=== PATIENT | female | born 1960 | race Caucasian/White ===

== ENCOUNTER → 2018-04-15 | Outpatient (CLI) | payer BC, OTHER ==
[~2018-04-15] MED LIST: Inderal80 MG PO; OMEP40CA12 PO
[2018-04-15 15:16] LABS: BASOPHILS ABSOLUTE AUTO 0.06 K/mm3 (0.00-0.23); BASOPHILS PERCENT AUTO 1 % (0-2); EOSINOPHILS ABSOLUTE AUTO 0.04 K/mm3 (0.00-0.68); EOSINOPHILS PERCENT AUTO 0 % (0-6); Hemoglobin 14.5 g/dL (11.5-16.0); IMMATURE GRAN ABSOLUTE AUTO 0.05 K/mm3 (0.00-0.10); IMMATURE GRAN PERCENT AUTO 0 % (0-1); LYMPHOCYTES ABSOLUTE AUTO 2.13 K/mm3 (0.84-5.20); LYMPHOCYTES PERCENT AUTO 18 % (21-46); MONOCYTES ABSOLUTE AUTO 0.85 K/mm3 (0.16-1.47); MONOCYTES PERCENT AUTO 7 % (4-13); Mean Corpuscular HGB 29.3 pg (26.0-34.0); Mean Corpuscular HGB Conc 33.7 g/dL (31.5-36.5); Mean Corpuscular Volume 87 fL (80-100); Mean Platelet Volume 9.9 fL (9.1-12.4); NEUTROPHILS ABSOLUTE AUTO 9.01 K/mm3 (1.96-9.15); NEUTROPHILS PERCENT AUTO 74 % (41-73); Platelet Count 214 K/mm3 (150-400); RDW Coefficient Variation 13.8 % (11.7-14.2); RDW Standard Deviation 43.8 fL (35.1-46.3); Red Blood Cell Count 4.95 M/mm3 (3.80-5.20); White Blood Cell Count 12.14 K/mm3 (4.00-11.30)
[2018-04-15 15:25] LABS: Alanine Aminotransfer (ALT/SGP 17 U/L (12-78); Albumin, Blood 3.5 g/dL (3.4-5.0); Albumin/Globulin Ratio 0.8 (0.8-1.8); Alk Phos 111 U/L (40-126); Anion Gap 12 mmol/L (6-16); Aspartate Aminotrans (AST/SGOT 15 U/L (12-37); Bilirubin, Total 0.7 mg/dL (0.1-1.0); Blood Urea Nitrogen 11 mg/dL (8-24); Bun/Creatinine Ratio 12.6 (12.0-20.0); CO2, Blood 26 mmol/L (21-32); Calcium, Blood 9.2 mg/dL (8.5-10.1); Chloride, Blood 99 mmol/L (98-108); Creatinine, Blood 0.87 mg/dL (0.40-1.00); Globulin, Blood 4.3 g/dL (2.2-4.0); Glomerular Filtration Rate >60 (60-); Glucose, Blood 96 mg/dL (70-99); Potassium, Blood 3.5 mmol/L (3.5-5.5); Sodium, Blood 137 mmol/L (136-145); Total Protein, Blood 7.8 g/dL (6.4-8.2)
== END ==
LOC: LAB SHORT 15:10 → LAB EV 15:10
PROVIDERS: Physician Assistant
DX: R10.32 Left lower quadrant pain (principal)
CPT/HCPCS: 80053; 83690; 85025

== ENCOUNTER → 2019-12-28 | Outpatient (CLI) | payer BC, OTHER | END | disposition home or self-care (01) | LOC: LAB EV 09:35 → LAB SHORT 09:35 | DX: J06.9 Acute upper respiratory infection, unspecified (principal) | CPT/HCPCS: U0003 ==

== ENCOUNTER → 2021-04-27 | Outpatient (CLI) | payer BC, OTHER | END | disposition home or self-care (01) | LOC: LAB SHORT 10:45 → LAB 10:45 → LAB SHORT 04-28 10:45 | DX: Z20.822 Contact with and (suspected) exposure to COVID-19 (principal) | CPT/HCPCS: U0003 ==

== ENCOUNTER 2022-07-03 10:46 | Inpatient (IN) | payer BC, OTHER ==
[~2022-07-03] VITALS: Ht 175.3 cm; Wt 75.3 kg
[2022-07-03 11:16] LABS: BASOPHILS ABSOLUTE AUTO 0.04 K/mm3 (0.00-0.23); BASOPHILS PERCENT AUTO 0 % (0-2); EOSINOPHILS PERCENT AUTO 0 % (0-6); Hematocrit 42.5 % (33.0-51.0); Hemoglobin 14.7 g/dL (11.5-16.0); IMMATURE GRAN ABSOLUTE AUTO 0.04 K/mm3 (0.00-0.10); IMMATURE GRAN PERCENT AUTO 0 % (0-1); LYMPHOCYTES ABSOLUTE AUTO 0.86 K/mm3 (0.84-5.20); LYMPHOCYTES PERCENT AUTO 7 % (21-46); MONOCYTES PERCENT AUTO 7 % (4-13); Mean Corpuscular HGB 29.5 pg (26.0-34.0); Mean Corpuscular HGB Conc 34.6 g/dL (31.5-36.5); Mean Corpuscular Volume 85 fL (80-100); Mean Platelet Volume 10.1 fL (9.1-12.4); NEUTROPHILS PERCENT AUTO 85 % (41-73); Platelet Count 282 K/mm3 (150-400); RDW Coefficient Variation 13.1 % (11.7-14.2); Red Blood Cell Count 4.98 M/mm3 (3.80-5.20); White Blood Cell Count 11.84 K/mm3 (4.00-11.30)
[2022-07-03 11:40] LABS: Albumin, Blood 2.7 g/dL (3.4-5.0); Albumin/Globulin Ratio 0.6 (0.8-1.8); Bilirubin, Total 0.8 mg/dL (0.1-1.0); Bun/Creatinine Ratio 13.8 (12.0-20.0); Calcium, Blood 8.8 mg/dL (8.5-10.1); Creatinine, Blood 0.65 mg/dL (0.40-1.00); Globulin, Blood 4.9 g/dL (2.2-4.0); Potassium, Blood 4.5 mmol/L (3.5-5.5); Total Protein, Blood 7.6 g/dL (6.4-8.2)
[2022-07-04 04:49] LABS: BASOPHILS ABSOLUTE AUTO 0.03 K/mm3 (0.00-0.23); BASOPHILS PERCENT AUTO 0 % (0-2); EOSINOPHILS ABSOLUTE AUTO 0.01 K/mm3 (0.00-0.68); EOSINOPHILS PERCENT AUTO 0 % (0-6); Hemoglobin 12.8 g/dL (11.5-16.0); IMMATURE GRAN ABSOLUTE AUTO 0.03 K/mm3 (0.00-0.10); IMMATURE GRAN PERCENT AUTO 0 % (0-1); LYMPHOCYTES ABSOLUTE AUTO 0.78 K/mm3 (0.84-5.20); LYMPHOCYTES PERCENT AUTO 8 % (21-46); MONOCYTES ABSOLUTE AUTO 0.77 K/mm3 (0.16-1.47); MONOCYTES PERCENT AUTO 8 % (4-13); Mean Corpuscular HGB 28.8 pg (26.0-34.0); Mean Corpuscular HGB Conc 32.8 g/dL (31.5-36.5); Mean Corpuscular Volume 88 fL (80-100); Mean Platelet Volume 10.2 fL (9.1-12.4); NEUTROPHILS PERCENT AUTO 84 % (41-73); Platelet Count 210 K/mm3 (150-400); RDW Coefficient Variation 13.2 % (11.7-14.2); RDW Standard Deviation 42.5 fL (35.1-46.3); Red Blood Cell Count 4.45 M/mm3 (3.80-5.20); White Blood Cell Count 10.02 K/mm3 (4.00-11.30)
[2022-07-04 05:04] LABS: International Normalized Ratio 1.19; Prothrombin Time Results 12.4 Sec (9.7-11.5)
--- NOTE | 2022-07-04 05:10 | NUR ---
SHIFT SUMMARY PT ER ADMIT THIS SHIFT FOR DIVERTICULITIS WITH ABCESS. PT HAS A PMH OF DIVERITICULITIS. PT STATES THAT SHE HAS BEEN EXPERIENCING PAIN FOR THE LAST COUPLE OF WEEKS AND HAS HAD A LOSS OF APPETITE AND WEIGHT LOSS. SHE REPORTS THAT SHE HAS NOT HAD A BOWEL MOVEMENT IN TWO WEEKS. ABD IS SOFT, BOWEL TONES HYPOACTIVE. PT REPORTS PAIN IN HER PELVIC REGION. MEDICATED PER EMAR FOR PAIN WITH EFFECT. PT AGREEABLE TO TAKE FENTANYL FOR PAIN. TYLENOL FOR FEVERS. IVF INFUSING. IV ANTIBIOTICS INFUSED. PT HAS BEEN UP AND AMBULATING TO THE BATHROOM. SHE IS NPO AT THIS TIME. PLAN IS FOR SURGICAL CONSULT.
[2022-07-04 05:53] LABS: Albumin, Blood 2.2 g/dL (3.4-5.0); Albumin/Globulin Ratio 0.6 (0.8-1.8); Bilirubin, Total 0.6 mg/dL (0.1-1.0); Bun/Creatinine Ratio 11.5 (12.0-20.0); Calcium, Blood 8.4 mg/dL (8.5-10.1); Creatinine, Blood 0.7 mg/dL (0.40-1.00); Globulin, Blood 3.6 g/dL (2.2-4.0); Potassium, Blood 3.7 mmol/L (3.5-5.5); Total Protein, Blood 5.8 g/dL (6.4-8.2)
--- NOTE | 2022-07-04 09:31 | NUR ---
TO RADIOLOGY VIA CART
--- NOTE | 2022-07-04 11:33 | NUR ---
Pt. is a wake in bed and welcomes my visit. Pts. daughter is present. Pt. is unsettled by previous diagnosis and treatments, and displays evidence of stress and frustration with the ED admission process. Pt. verbalizes she has had excellent care once she was seen by medical staff. Listen empathetically with a calming presence. Attempt to normalize the Pt. experience. Pt. displays evidence of being heard. Establish rapport with Pt. and daughter. Pt. verbalizes that she is no longer active in the judaism evangelical, and welcomes spiritual care from the hospital. Pt. 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 Pt. verbalizes that rest is hard to come by at home. Prayed with the Pt. and daughter. Both verbalize gratitude for the spiritual care visit.
--- NOTE | 2022-07-04 11:47 | NUR ---
1045 RETURNED TO ROOM FROM RADIOLOGY. UROSIL DRAIN IN PLACE TO LEFT BUTTOCK AREA. CLOUDY YELLOW DRAINAGE PRESENT IN DRAIINAGE BAG.
--- NOTE | 2022-07-04 18:25 | NUR ---
PT DID WELL TODAY. DRAIN PLACED IN LEFT UPPER BUTTOCK ATTACHED TO UROSIL BAG. QUARTER SIZED BLEEDING AROUND DRAIN. YELLOW SEROSANGUINOUS FLUID. DRESSING INTACT. PATIENT STATES PAIN IS TOLERATED AT 5/10. CURRENTLY AT 4/10 FOR HEADACHE AND 7/10 FOR ABDOMEN AND LEFT BUTTOCK AREA. PT STATES OKAY FOR NOW. PT HAS BEEN TOLERATING PO FLUIDS WELL.
--- NOTE | 2022-07-04 18:59 | NUR ---
PT REPORTS PAIN IS ADEQUATELY CONTROLLED AND DENIES NEED FOR PIN MEDS AT THIS TIME. PT REPORTS HEADACHE HAS DECREASED AFTER TORADOL GIVEN. TAKING SMALL AMOUNTS OF CLEAR LIQUID WITHOUT NAUSEA. DRAIN IN PLACE TO LEFT BUTTOCK AREA WITH CLOUDY YELLOW OUTPUT. Q
[2022-07-05 04:30] LABS: Hematocrit 37.6 % (33.0-51.0); Hemoglobin 12.2 g/dL (11.5-16.0); Mean Corpuscular HGB 28.4 pg (26.0-34.0); Mean Corpuscular HGB Conc 32.4 g/dL (31.5-36.5); Mean Corpuscular Volume 88 fL (80-100); Mean Platelet Volume 10.1 fL (9.1-12.4); Platelet Count 235 K/mm3 (150-400); RDW Coefficient Variation 13.2 % (11.7-14.2); RDW Standard Deviation 42.6 fL (35.1-46.3); Red Blood Cell Count 4.29 M/mm3 (3.80-5.20); White Blood Cell Count 8.93 K/mm3 (4.00-11.30)
[2022-07-05 05:39] LABS: Alanine Aminotransfer (ALT/SGP 9 U/L (12-78); Albumin/Globulin Ratio 0.5 (0.8-1.8); Alk Phos 77 U/L (50-136); Anion Gap 8 mmol/L (6-16); Aspartate Aminotrans (AST/SGOT 10 U/L (12-37); Bilirubin, Total 0.5 mg/dL (0.1-1.0); Blood Urea Nitrogen 12 mg/dL (8-24); Bun/Creatinine Ratio 23.3 (12.0-20.0); C-REACTIVE PROTEIN, EXT RANGE >19.000 mg/dL (0.000-0.300); CO2, Blood 23 mmol/L (21-32); Calcium, Blood 8.5 mg/dL (8.5-10.1); Chloride, Blood 110 mmol/L (98-108); Creatinine, Blood 0.52 mg/dL (0.40-1.00); Globulin, Blood 3.7 g/dL (2.2-4.0); Glomerular Filtration Rate 105 (60-); Glucose, Blood 108 mg/dL (70-99); Potassium, Blood 3.5 mmol/L (3.5-5.5); Sodium, Blood 141 mmol/L (136-145); Total Protein, Blood 5.7 g/dL (6.4-8.2)
--- NOTE | 2022-07-05 07:45 | NUR ---
SUMMARY PT MED X1 FOR NAUSEA LAST SHIFT.REPORTS DILAUDID EFFETIVE FOR PAIN.VERB INABILITY TO SLEEP. REQUESTS SLEEPER VIVEK CHAN RN AGREES TO FOLLOW UP REGARDING THIS.
--- NOTE | 2022-07-05 17:01 | NUR ---
SCANT SEROUS DRAINAGE FROM UROSIL DRAIN. PT REPORTS OVERALL ABD PAIN HAS DECREASED FROM WHAT IT WAS YESTERDAY BUT THAT DRAIN INSERTION SITE IS PAINFUL.POOR APPETITE BUT HAS DENIED NEED FOR NAUSEA MEDS. PT REPORTS HAS SLEPT VERY LITTLE SINCE ADMITTED- ORDERS OBTAINED FOR SLEEP MED.
--- NOTE | 2022-07-06 04:13 | NUR ---
SHIFT SUMMARY S/P URASIL DRAIN PLACEMENT. SCANT SEROSANGUINEOUS FLUID IN TUBING.DRAIN SECURE WITH ADHESIVE SURGICAL DRESSING, C/D/I. PATIENT TOLERATING PO CLD. DENIES N/V. PAIN WELL MANAGED THIS SHIFT. VOIDS X2 URINE IS DARK TEA COLORED. SBA TO THE BATHROOM, VSS. CALLS APROPRIATELY. WILL REPORT TO DAY RN.
[2022-07-06 04:54] LABS: Hematocrit 36.4 % (33.0-51.0); Mean Corpuscular HGB 28.8 pg (26.0-34.0); Mean Corpuscular Volume 87 fL (80-100); Mean Platelet Volume 10.2 fL (9.1-12.4); Platelet Count 219 K/mm3 (150-400); RDW Coefficient Variation 13.4 % (11.7-14.2); RDW Standard Deviation 43.4 fL (35.1-46.3); Red Blood Cell Count 4.17 M/mm3 (3.80-5.20); White Blood Cell Count 7.38 K/mm3 (4.00-11.30)
[2022-07-06 05:25] LABS: Albumin, Blood 1.9 g/dL (3.4-5.0); Albumin/Globulin Ratio 0.5 (0.8-1.8); Bilirubin, Total 0.5 mg/dL (0.1-1.0); Calcium, Blood 8.4 mg/dL (8.5-10.1); Creatinine, Blood 0.54 mg/dL (0.40-1.00); Globulin, Blood 3.6 g/dL (2.2-4.0); Potassium, Blood 3.5 mmol/L (3.5-5.5); Total Protein, Blood 5.5 g/dL (6.4-8.2)
[2022-07-07 04:38] LABS: Hematocrit 35.6 % (33.0-51.0); Hemoglobin 11.3 g/dL (11.5-16.0); Mean Corpuscular HGB 28.3 pg (26.0-34.0); Mean Corpuscular HGB Conc 31.7 g/dL (31.5-36.5); Mean Corpuscular Volume 89 fL (80-100); Mean Platelet Volume 9.9 fL (9.1-12.4); Platelet Count 258 K/mm3 (150-400); RDW Coefficient Variation 13.6 % (11.7-14.2); RDW Standard Deviation 44.8 fL (35.1-46.3); Red Blood Cell Count 3.99 M/mm3 (3.80-5.20); White Blood Cell Count 7.03 K/mm3 (4.00-11.30)
[2022-07-07 05:00] LABS: Albumin, Blood 1.9 g/dL (3.4-5.0); Albumin/Globulin Ratio 0.5 (0.8-1.8); Bilirubin, Total 0.4 mg/dL (0.1-1.0); Bun/Creatinine Ratio 21.8 (12.0-20.0); Calcium, Blood 8.3 mg/dL (8.5-10.1); Creatinine, Blood 0.6 mg/dL (0.40-1.00); Globulin, Blood 3.5 g/dL (2.2-4.0); Potassium, Blood 3.6 mmol/L (3.5-5.5); Total Protein, Blood 5.4 g/dL (6.4-8.2)
--- NOTE | 2022-07-07 19:15 | NUR ---
SHIFT SUMMARY POD2 L BUTTOCK DRAIN PLACEMENT, A/O X4, VSS, TOLERATING DIET, PAIN MANAGED PER EMAR, IV ABX INFUSING ORDERED, PT INDEPENDENT IN HER ROOM, PLEASANT AND COOPERATIVE WITH NURSING STAFF. SMALL AMT OF YELLOW CLOUDY DRAINAGE EMPTIED FROM DRAIN THIS SHIFT. NO ACUTE EVENTS THIS SHIFT, CALL LIGHT IN REACH, REPORT GIVEN TO JUSTYN PATIÑO.
[2022-07-08 04:26] LABS: Hematocrit 35.1 % (33.0-51.0); Hemoglobin 11.1 g/dL (11.5-16.0); Mean Corpuscular HGB 28.2 pg (26.0-34.0); Mean Corpuscular HGB Conc 31.6 g/dL (31.5-36.5); Mean Corpuscular Volume 89 fL (80-100); Platelet Count 267 K/mm3 (150-400); RDW Coefficient Variation 13.6 % (11.7-14.2); RDW Standard Deviation 44.6 fL (35.1-46.3); Red Blood Cell Count 3.94 M/mm3 (3.80-5.20); White Blood Cell Count 6.43 K/mm3 (4.00-11.30)
[2022-07-08 04:44] LABS: Albumin, Blood 1.8 g/dL (3.4-5.0); Albumin/Globulin Ratio 0.5 (0.8-1.8); Bilirubin, Total 0.3 mg/dL (0.1-1.0); Creatinine, Blood 0.57 mg/dL (0.40-1.00); Globulin, Blood 3.5 g/dL (2.2-4.0); Potassium, Blood 3.3 mmol/L (3.5-5.5); Total Protein, Blood 5.3 g/dL (6.4-8.2)
--- NOTE | 2022-07-08 04:45 | NUR ---
POD3 FOR A URACEL DRAIN PLACEMENT IN THE LEFT BUTTOCK. DRESSING IS C/D/I. MINIMAL CLEAR YELLOW DRAINAGE TINGED WITH RED STREAKS NOTED. PT REPORTS PAIN RELATED TO DRAIN INSERTION POINT AND LOWER ABD PAIN. MEDICATED WITH PRN'S WITH GOOD RESULTS. VSS. PT SLEPT ON AND OFF TONIGHT. PT VOIDING W/O DIFFICULTY, REPORTS PASSING SOME FLATTUS, BUT NO BM'S. PLAN FOR PT TO CONTINUE IV ABX, ADVANCE DIET, AND STAY UNTIL THE RETURN OF BOWEL FUNCTION. THE PATIENT IS CURRENTLY RESTING, IN NO DISTRESS, CALL LIGHT IN REACH.
--- NOTE | 2022-07-08 08:47 | NUR ---
C/O NAUSEA THIS AM, ZOFRAN GIVEN, REPORTS PASSING FLATUS, PT IS TRYING TO EAT BREAKFAST, STATES SHE IS AMBULATING IN ROOM, URESIL DRAIN W/ CLOUDY ORANGE DRAINAGE NOTED IN DRAINAGE BAG, CONT. TO MONITOR FOR ANY CHANGES.
--- NOTE | 2022-07-08 12:31 | NUR ---
PT STATES HAD LITTLE RELIEF OF NAUSEA FROM ZOFRAN THIS AM, PT REPORTS TOLERATING LOW FAT DIET FAIRLY, AND HAS NOT BEEN EATING MUCH, 2 NICOTINE PATCHES REMOVED FROM PT THIS AM PRIOR TO THIS AM'S DOSE, DR. RUBIO NOTIFIED, ORDERED TO REMOVE TODAY'S NICOTINE PATCH AND PLACE PT ON FULL LIQ. DIET.
--- NOTE | 2022-07-08 15:50 | NUR ---
AWAKE FROM NAP, DENIES ANY NAUSEA, REPORTS FEELING "BETTER" CONT. TO MONITOR FOR ANY CHANGES.
--- NOTE | 2022-07-08 18:10 | NUR ---
SUMMARY C/O NAUSEA THIS AM, AMBULATED DOWN THE HALLS, DENIED ANY NEED FOR PAIN MEDS ALL DAY, PT TOOK A NAP THIS AFTERNOON AND REPORTS FEELING BETTER THIS EVENING, NO ACUTE CHANGES THIS SHIFT.
--- NOTE | 2022-07-09 06:27 | NUR ---
PT VSS T/O NIGHT. URESIL DRAIN PUT OUT APPX 10ML SS DRNG. SITE WNL. PT DENIED N/V, REP +FLATUS, NO BM YET. PT REP PAIN MINIMAL, MED X1 W/REP RELIEF. PT REP HAVING SLEPT BETTER TONIGHT. PT INDEP IN ROOM, IS VOIDING URINE W/O DIFFICULTY. IV ABX CONT PER ORDERS.
--- NOTE | 2022-07-09 07:31 | NUR ---
PT AMB IN HALLS THIS AM, MARCO WELL. IS CURRENTLY SITTING UP IN CHAIR DRINKING TEA.
--- NOTE | 2022-07-09 17:52 | NUR ---
SUMMARY DENIED ANY NAUSEA THIS AM, C/O NAUSEA THIS AFTERNOON, PT STATES NOT PASSING MUCH FLATUS TODAY, AMBULATED DOWN THE HALLS X3 TODAY, AND OOB TO CHAIR, DRAIN C/D/I, SCANT CLOUDY ORANGE DRAINAGE, NO OTHER CHANGES THIS SHIFT.
[2022-07-10 05:08] LABS: Hematocrit 34.3 % (33.0-51.0); Hemoglobin 11.4 g/dL (11.5-16.0); Mean Corpuscular HGB 29.1 pg (26.0-34.0); Mean Corpuscular HGB Conc 33.2 g/dL (31.5-36.5); Mean Corpuscular Volume 88 fL (80-100); Mean Platelet Volume 9.8 fL (9.1-12.4); Platelet Count 302 K/mm3 (150-400); RDW Coefficient Variation 13.7 % (11.7-14.2); RDW Standard Deviation 43.7 fL (35.1-46.3); Red Blood Cell Count 3.92 M/mm3 (3.80-5.20); White Blood Cell Count 8.55 K/mm3 (4.00-11.30)
[2022-07-10 05:32] LABS: Albumin, Blood 1.9 g/dL (3.4-5.0); Albumin/Globulin Ratio 0.5 (0.8-1.8); Bilirubin, Total 0.3 mg/dL (0.1-1.0); Calcium, Blood 8.4 mg/dL (8.5-10.1); Creatinine, Blood 0.54 mg/dL (0.40-1.00); Globulin, Blood 3.5 g/dL (2.2-4.0); Potassium, Blood 3.5 mmol/L (3.5-5.5); Total Protein, Blood 5.4 g/dL (6.4-8.2)
--- NOTE | 2022-07-10 07:49 | NUR ---
PT VSS T/O NIGHT. PT REP PAIN AND NAUSEA IMPROVED THIS AM, REP +FLATUS. NO SIGNIFICANT DRNG FROM URESIL DRAIN. PT AMB IN HALLS X2 DURING NIGHT AND X1 THIS AM. PLAN FOR REPEAT CT THIS AM.
--- NOTE | 2022-07-10 17:27 | NUR ---
SHIFT SUMMARY: POD 7 URACIL DRAIN PLACED FOR DIVERTIC ABSCESS NO SIGNIFICANT CHANGES DURING SHIFT. URACIL ON LEFT BUTTOCK STILL HAS MINIMAL OUTPUT THAT IS A LIGHT RED COLOR. SHE IS TOLERATING SMALL AMOUNTS OF PO INTAKE BUT REPORTS SLIGHT NAUSEA AT TIMES THOUGH REFUSES ANTNAUSEA MEDICATIONS. SHE REPORTED "I'VE BEEN INTERMITTENTLY NAUSEOUS EVER SINCE THEY GAVE ME THAT SMALL LITTLE PILL EARLY IN THE MORNING". PATIENT BELIEVES IT WAS FROM THE PO PROTONIX AND HAS REFUSED IT FOR THE EVENING TO "TRY AND RULE STUFF OUT" TO FIGURE OUT WHY SHE SO NAUSEATED. SHE REPORTS HAVING FLATUS, BURPING, AND IS VOIDING. SHE IS FREQUENTLY AMBULATING IN THE HALLWAYS AND INSIDE THE ROOM INDEP. ABD IS SOFT AND HAS HYPERACTIVE BOWEL TONES. PAIN IS MANAGED WITH PO TYLENOL. CALLS APPROPRIATELY. CALL LIGHT WITHIN REACH. THE PLAN IS TO CONTINUE IV ABX AND IF APPROPRIATE MIGHT DISCHARGE HOME WITH THE DRAIN TOMORROW DEPENDING ON OUTPUT OF DRAIN AND MORE NAUSEA IMPROVEMENT.
[2022-07-11 05:17] LABS: Hematocrit 37.1 % (33.0-51.0); Hemoglobin 11.7 g/dL (11.5-16.0); Mean Corpuscular HGB 28.3 pg (26.0-34.0); Mean Corpuscular HGB Conc 31.5 g/dL (31.5-36.5); Mean Corpuscular Volume 90 fL (80-100); Mean Platelet Volume 9.6 fL (9.1-12.4); Platelet Count 306 K/mm3 (150-400); RDW Coefficient Variation 13.7 % (11.7-14.2); RDW Standard Deviation 45.4 fL (35.1-46.3); Red Blood Cell Count 4.14 M/mm3 (3.80-5.20); White Blood Cell Count 8.19 K/mm3 (4.00-11.30)
[2022-07-11 05:43] LABS: Albumin/Globulin Ratio 0.6 (0.8-1.8); Bilirubin, Total 0.4 mg/dL (0.1-1.0); Bun/Creatinine Ratio 10.6 (12.0-20.0); Calcium, Blood 8.4 mg/dL (8.5-10.1); Creatinine, Blood 0.56 mg/dL (0.40-1.00); Globulin, Blood 3.6 g/dL (2.2-4.0); Potassium, Blood 3.6 mmol/L (3.5-5.5); Total Protein, Blood 5.6 g/dL (6.4-8.2)
--- NOTE | 2022-07-11 05:46 | NUR ---
PT AWAKE FOR MUCH OF NIGHT, VSS. PT REP NAUSEA EARLY IN SHIFT; MED W/ZOFRAN W/REP RELIEF. BT HYPO, PT REP PASSING FLATUS, NO BM YET. PT MED FOR PAIN X2, REP PAIN AT DRAIN INSERTION SITE AND "DEEP" IN ABD. PT DECLINING MOST PO MEDS. PT AGREEABLE TO START BOWEL CARE THIS AM. PT AMB IN HALLS X1, IS INDEP IN ROOM.
[2022-07-11] MEDS ORDERED: OXYC5 PO (13:52)
[2022-07-11] MEDS ORDERED: Acetaminophen650 M1 PO (13:53)
[2022-07-11] MEDS ORDERED: NICO21TP TOP (13:53)
[2022-07-11] MEDS ORDERED: CIPR500 PO (13:53)
[2022-07-11] MEDS ORDERED: MIRT30 PO (13:53)
[2022-07-11] MEDS ORDERED: ONDA4ODT MM (13:54)
[2022-07-11] MEDS ORDERED: FLAGYL500 M1 PO (13:54)
--- NOTE | 2022-07-11 15:25 | NUR ---
DISCHARGE NOTE: PATIENT AND PATIENTS DAUGHTER WERE EDUCATED ON DISCHARGE INSTRUCTIONS. BOTH VERBALIZED UNDERSTANDING OF INSTRUCTIONS AND HAD NO FURTHER QUESTIONS AT THIS TIME. IV WAS TAKEN OUT AND WNL. HER DRESSING ON HER LEFT BUTTOCKS WAS CHANGED AND IS C/D/I. PATIENT WAS EDUCATED ON HOW TO EMPTY, DOCUMENT, AND KEEP THE DRESSING CLEAN AFTER SHOWERING. HARD PERSCRIPTION WAS GIVEN TO THE DAUGHTER AND OTHER PERSCRIPTIONS WERE FAXED TO HER PREFERRED PHARMACY WHICH IS [facility] PATIENT IS INDEP. IN THE ROOM. SHE IS TOLERATING SMALL AMOUNTS OF PO INTAKE, VOIDING, AND PASSING GAS. SHE HAS PERSONAL ITEMS IN THE ROOM GATHERED. PATIENT IS BEING WHEELCHAIRED OUT TO HER DAUGHTERS CAR TO BE TAKEN HOME.
== END 2022-07-11 15:31 | disposition home or self-care (01) | DRG 391 ==
LOC: ER 10:46 → SURS 18:32 → ERHOLD 18:32 → SURS 18:32
PROVIDERS: Internal Medicine; Physician Assistant; Surgery; ADMIT Internal Medicine
PROC: 0W9G30Z Drainage of Peritoneal Cavity with Drainage Device, Percutaneous Approach (ICD-10-PCS; principal; 2022-07-04)
DX: K57.20 Diverticulitis of large intestine with perforation and abscess without bleeding (principal); K65.1 Peritoneal abscess; K56.7 Ileus, unspecified; G47.00 Insomnia, unspecified; J44.9 Chronic obstructive pulmonary disease, unspecified; I10 Essential (primary) hypertension; B96.20 Unspecified Escherichia coli [E. coli] as the cause of diseases classified elsewhere; K21.9 Gastro-esophageal reflux disease without esophagitis; F17.210 Nicotine dependence, cigarettes, uncomplicated; B96.4 Proteus (mirabilis) (morganii) as the cause of diseases classified elsewhere; G43.709 Chronic migraine without aura, not intractable, without status migrainosus; Z90.49 Acquired absence of other specified parts of digestive tract; Z90.710 Acquired absence of both cervix and uterus; Z88.0 Allergy status to penicillin
CPT/HCPCS: 36415; 49405; 74177; 80053; 83690; 83735; 85025; 85027; 85610; 85651; 86140; 87070; 87075; 87077; 87186; 87205; 96361; 96365-59; 96375; 99285-25; A9270; C1751; C9113; J0692; J1170; J1790; J1885; J2405; J2550; J3010; J7030; J7050; Q9967

== ENCOUNTER 2024-04-13 15:34 | Inpatient (IN) | payer BC, OTHER ==
[~2024-04-13] VITALS: Ht 175.3 cm; Wt 90.0 kg
[~2024-04-13 15:34] MED LIST changes: +Acetaminophen650 M1 PO; +CIPR500 PO; +FLAGYL500 M1 PO; +MIRT30 PO; +NICO21TP TOP; +NITR.4SL; +OMEP20ER; +ONDA4ODT MM; +OXYC5 PO
[2024-04-13 16:13] LABS: BASOPHILS ABSOLUTE AUTO 0.04 K/mm3 (0.00-0.23); BASOPHILS PERCENT AUTO 1 % (0-2); EOSINOPHILS ABSOLUTE AUTO 0.06 K/mm3 (0.00-0.68); EOSINOPHILS PERCENT AUTO 1 % (0-6); Hematocrit 47.6 % (33.0-51.0); Hemoglobin 15.7 g/dL (11.5-16.0); IMMATURE GRAN ABSOLUTE AUTO 0.03 K/mm3 (0.00-0.10); IMMATURE GRAN PERCENT AUTO 0 % (0-1); LYMPHOCYTES PERCENT AUTO 19 % (21-46); MONOCYTES ABSOLUTE AUTO 0.59 K/mm3 (0.16-1.47); MONOCYTES PERCENT AUTO 7 % (4-13); Mean Corpuscular HGB 29.4 pg (26.0-34.0); Mean Corpuscular Volume 89 fL (80-100); Mean Platelet Volume 9.3 fL (9.1-12.4); NEUTROPHILS ABSOLUTE AUTO 6.14 K/mm3 (1.96-9.15); NEUTROPHILS PERCENT AUTO 73 % (41-73); Platelet Count 211 K/mm3 (150-400); RDW Coefficient Variation 13.5 % (11.7-14.2); RDW Standard Deviation 44.1 fL (35.1-46.3); Red Blood Cell Count 5.34 M/mm3 (3.80-5.20); White Blood Cell Count 8.46 K/mm3 (4.00-11.30)
[2024-04-13 16:43] LABS: Albumin, Blood 3.4 g/dL (3.4-5.0); Albumin/Globulin Ratio 0.9 (0.8-1.8); Bilirubin, Total 0.8 mg/dL (0.1-1.0); Bun/Creatinine Ratio 17.9 (12.0-20.0); Calcium, Blood 8.9 mg/dL (8.5-10.1); Creatinine, Blood 0.78 mg/dL (0.40-1.00); Globulin, Blood 3.8 g/dL (2.2-4.0); Potassium, Blood 3.3 mmol/L (3.5-5.5); Total Protein, Blood 7.2 g/dL (6.4-8.2)
[2024-04-13] MEDS ORDERED: TRAZ100 PO (17:23)
[2024-04-13] MEDS ORDERED: ESCI20 PO (17:23)
[2024-04-13] MEDS ORDERED: BUPROPION XL150 M1 PO (17:24)
[2024-04-13] MEDS ORDERED: ADALAT CC30 M2 PO (17:24)
[2024-04-13] MEDS ORDERED: Morphine Sulfate 4 MG/1 ML Injection IV ONE (17:25)
[2024-04-13] MEDS ORDERED: Ondansetron HCl 2 MG / ML 2ML Vial IV ONE (17:25)
[2024-04-13] MEDS ORDERED: HYDROmorphone HCl/Pf 1MG SYR IV ONE ×2 (19:00→21:00)
[2024-04-13] MEDS ORDERED: HYDROmorphone HCl/Pf 1MG SYR IV PRN (20:50)
[2024-04-13] MEDS ORDERED: Lactated Ringer's 1,000 ML IV SCH (20:55)
[2024-04-13] MEDS ORDERED: Ondansetron HCl 2 MG / ML 2ML Vial IV PRN (20:55)
[2024-04-13] MEDS ORDERED: TraZODone HCl 100 MG Tab PO SCH (21:00)
[2024-04-13] MEDS ORDERED: Albuterol 2.5 MG/3 ML VIAL INH PRN (21:00)
[2024-04-13] MEDS ORDERED: Potassium Chloride 40 MEQ in NS 250 ML IV STA (21:02)
[2024-04-13 22:22] VITALS: BP 123/101
--- NOTE | 2024-04-14 04:28 | NUR ---
SHIFT SUMMARY HUDSON WAS ALERT AND FULLY ORIENTED WHEN SHE ARRIVED FROM THE ED AND ABLE T0 STAND AND AMBULATE TO BED. PAIN MANAGED MODERATELY WELL W CURRENT MEDS. PT ENCOURAGED TO CALL FOR ASSISTANCE TO AMBULATE TO BR, GAIT STEADY W/ FWW. ADMIT COMPLETE. PT KEPT NPO FROM MIDNIGHT.
[2024-04-14 04:32] VITALS: BP 111/65
[2024-04-14 07:05] LABS: BASOPHILS ABSOLUTE AUTO 0.03 K/mm3 (0.00-0.23); BASOPHILS PERCENT AUTO 1 % (0-2); EOSINOPHILS ABSOLUTE AUTO 0.09 K/mm3 (0.00-0.68); EOSINOPHILS PERCENT AUTO 1 % (0-6); Hematocrit 44.2 % (33.0-51.0); Hemoglobin 14.4 g/dL (11.5-16.0); IMMATURE GRAN ABSOLUTE AUTO 0.03 K/mm3 (0.00-0.10); IMMATURE GRAN PERCENT AUTO 1 % (0-1); LYMPHOCYTES ABSOLUTE AUTO 1.22 K/mm3 (0.84-5.20); LYMPHOCYTES PERCENT AUTO 19 % (21-46); MONOCYTES ABSOLUTE AUTO 0.63 K/mm3 (0.16-1.47); MONOCYTES PERCENT AUTO 10 % (4-13); Mean Corpuscular HGB 29.8 pg (26.0-34.0); Mean Corpuscular HGB Conc 32.6 g/dL (31.5-36.5); Mean Corpuscular Volume 92 fL (80-100); Mean Platelet Volume 9.3 fL (9.1-12.4); NEUTROPHILS ABSOLUTE AUTO 4.51 K/mm3 (1.96-9.15); NEUTROPHILS PERCENT AUTO 69 % (41-73); Platelet Count 179 K/mm3 (150-400); RDW Coefficient Variation 13.7 % (11.7-14.2); Red Blood Cell Count 4.83 M/mm3 (3.80-5.20); White Blood Cell Count 6.51 K/mm3 (4.00-11.30)
[2024-04-14 07:24] LABS: Calcium, Blood 8.2 mg/dL (8.5-10.1); Creatinine, Blood 0.74 mg/dL (0.40-1.00); Potassium, Blood 3.7 mmol/L (3.5-5.5)
[2024-04-14 07:25] VITALS: BP 123/78
[2024-04-14] MEDS ORDERED: NIFEdipine 30 MG TabCR PO SCH (09:00)
[2024-04-14] MEDS ORDERED: buPROPion HCL 150 MG TAB.SR.12H PO SCH (09:00)
[2024-04-14] MEDS ORDERED: Citalopram Hydrobromide 20 MG Tab PO SCH (09:00)
[2024-04-14] MEDS ORDERED: PROAIR RESPICL90 MCG INH (09:13)
[2024-04-14] MEDS ORDERED: Cefepime HCl 2,000 MG in NS 100 ML IV SCH (09:30)
[2024-04-14] MEDS ORDERED: MetroNIDAZOLE 500MG/NS 100 ml 100 ML IV SCH (09:30)
[2024-04-14] MEDS ORDERED: Peg/Electrolytes 4,000 ML BTL PO ONE (09:35)
[2024-04-14] MEDS ORDERED: Nicotine 21 MG PATCH TOP SCH (10:00)
--- NOTE | 2024-04-14 10:00 | NUR ---
KO IS IN ROOM, UNMIXED. PUTTING SMALL AMOUNTS IN WATER PT SIPS ON WATER SLOWLY.
--- NOTE | 2024-04-14 11:18 | NUR ---
Pt. is awake in bed when she welcomes my visit. Pt. is pleasant, but displays evidence of discomfort as she awaits a planned surgery. Pt. is also unsettled about the care for her MARCELINO at home who likely has dementia. Facilitated a life review about both her medical and family histories. Considered matters of butch and belief. Pt. displayed evidence of trust. Prayed for the Pt. Pt. verbalized gratitude for the spiritual care visit, and welcomed this sales and service engineer to return.
[2024-04-14] MEDS ORDERED: TPN Consult Notification XX ONE (13:00)
[2024-04-14 14:19] VITALS: BP 109/74
[2024-04-14] MEDS ORDERED: Parenteral Electolytes 40 ML,Potassium Phosphate Dibasic 30 MM,Multivitamins 10 ML,ZINC... IV SCH (17:00)
[2024-04-14] MEDS ORDERED: NS 250 ML IV PRN (17:55)
[2024-04-14 19:23] VITALS: BP 117/91
--- NOTE | 2024-04-14 19:57 | NUR ---
SHIFT SUMMARY PT HAS TOLERATED A SMALL AMOUNT OF GOLYETLY; ALLOWING PT TO GO AT HER OWN PACE SO SHE DOESN'T VOMIT. REPORTS OCC DRY HEAVING; NO EMESIS. INT CRAMPING PAIN. URINE DARK. PICC LINE PLACED. TPN STARTED.
[2024-04-15] VITALS (11 sets, daily range): BP systolic 106–152; BP diastolic 64–97
[2024-04-15 06:47] LABS: Anion Gap 10 mmol/L (3-11); Blood Urea Nitrogen 24 mg/dL (8-24); CO2, Blood 24 mmol/L (21-32); Calcium, Blood 8.1 mg/dL (8.5-10.1); Chloride, Blood 107 mmol/L (98-108); Creatinine, Blood 0.63 mg/dL (0.40-1.00); Glomerular Filtration Rate 99 (60-); Glucose, Blood 123 mg/dL (70-99); Potassium, Blood 4.3 mmol/L (3.5-5.5); Sodium, Blood 137 mmol/L (136-145); Triglycerides 82 mg/dL (30-160)
--- NOTE | 2024-04-15 06:54 | NUR ---
SHIFT SUMMARY NOC. ADMIT FOR LARGE BOWEL OBSTRUCTION. A/O X4. PT DENIES PASSING GAS, TOLERATING SMALL SIPS OF BOWEL PREP. VOIDING DARK YELLOW URINE. PT AMBULATES WITH SBA. PT HAD DIFFICULT TIME SWALLOWING BEDTIME MED BUT GOT IT DOWN. PT MEDICATED WITH IV DILAUDID 1MG WITH TEMPORARY REPORTED RELIEF. PT MEDICATED FOR NAUSEA X1. PT RESTED WITH EYES CLOSED AND CALL LIGHT IN REACH.
[2024-04-15] MEDS ORDERED: LORazepam 2 MG/ML 1ML Injection IV PRN (09:00)
[2024-04-15] MEDS ORDERED: Lidocaine 2% Jelly Uro-Jet UR ONE (09:00)
--- NOTE | 2024-04-15 11:36 | NUR ---
ATTEMPTED TO PLACE NGT TWICE, UNABLE TO ADVANCE. COILING IN THROAT AND PT REPORTED DISCOMFORT ONCE ALMOST TO STOMACH. NOTIFIED DR. MENDIOLA. OK TO NOT ATTEMPT AGAIN AT THIS TIME. PT CONTINUES TO REPORT INTERMITTENT NAUSEA. NO EMESIS.
[2024-04-15] MEDS ORDERED: TPN Consult Notification XX ONE (11:55)
[2024-04-15] MEDS ORDERED: CUSO4 P HYD IV SCH (17:00)
[2024-04-15] MEDS ORDERED: [UNRECOGNIZED DRUG - OTHER] IV SCH (17:00)
--- NOTE | 2024-04-15 17:49 | NUR ---
SHIFT SUMMARY PT CONTINUES TO REMAIN INTERMITTENTLY NAUSEOUS. USUALLY INCREASES WITH MOVEMENT OR AMBULATION. PAIN CONTROLLED PER EMAR. CONT BIOX IN PLACE, PT ON 2L NASAL CANULA. PT NOT EATING OR DRINKING AT THIS TIME IT INCREASES HER DISCOMFORT. UNABLE TO PLACE NGT TODAY, MD AWARE. PLAN IS FOR POSSIBLE PLACEMENT IN OR. PT DENIES FLATUS AND DENIES BM. VOIDING.
[2024-04-15] MEDS ORDERED: Lactated Ringer's 1,000 ML IV SCH (19:40)
--- NOTE | 2024-04-15 21:30 | NUR ---
LEFT THE FLOOR WITH SURGICAL STAFF. PT LEFT THE FLOOR FOR EGD AND NG TUBE PLACEMENT AT 2130.
--- NOTE | 2024-04-15 21:45 | NUR ---
TO JARRETT VIA [facility], PRE OP TEACHING DONE. DENTURES GIVEN TO DAUGHTER PRIOR TO PROCEDURE. PT HAVING WAVES OF PAIN 10/10. AND WAVES OF NAUSEA AND DRY HEAVES
[2024-04-15] MEDS ORDERED: Benzocaine Oral Spray 0.5ML UD ONE (22:13)
[2024-04-15] MEDS ORDERED: propofoL 20 ML IV ONE ×2 (22:15→22:32)
[2024-04-15] MEDS ORDERED: Midazolam HCl 1MG / ML 2ML Vial ONE (22:20)
[2024-04-15] MEDS ORDERED: FentaNYL Citrate 50 MCG/ML 2 ML Injection ONE (22:20)
[2024-04-15] MEDS ORDERED: Sugammadex Sodium 200 MG/2ML SDV (100 MG/ML) ONE (22:46)
--- NOTE | 2024-04-15 22:50 | NUR ---
04/15/24 [id number] Michelle Berg A DENTURES GIVEN TO DAUGHTER. PRIOR TO DTSRT OF PROCEDURE History, Chart, Medications and Allergies reviewed before start of procedure.
[2024-04-15] MEDS ORDERED: Metoclopramide HCl 5MG / ML 2ML Vial IV PRN (23:50)
[2024-04-16] VITALS (8 sets, daily range): BP systolic 114–148; BP diastolic 72–95
[2024-04-16] MEDS ORDERED: FentaNYL Citrate 50 MCG/ML 2 ML Injection IV PRN ×2 (00:15→00:20)
--- NOTE | 2024-04-16 00:30 | NUR ---
RETURN TO SURGICAL FLOOR POST RECOVERY. PT BACK TO ROOM AT 0025. NG TUBE CONNECTED TO LIS AND PRODUCING BROWN OUTPUT. PT BACK ON CONTINUOUS BIOX AND PLACED ON O2 VIA N/C. PT DENIES PAIN AT THIS TIME.
--- NOTE | 2024-04-16 05:01 | NUR ---
SHIFT SUMMARY NOC. ADMIT FOR LARGE BOWEL OBSTRUCTION. A/O X4. PT HAD EGD AND NG PLACEMENT IN OR THIS SHIFT. NG TUBE CONNECTED TO LIS AND PRODUCING BROWN OUTPUT. PT MEDICATED FOR PAIN AND NAUSEA THIS SHIFT WITH REPORTED RELIEF. PT ON O2 VIA N/C D/T DESAT, CONT BIOX IN PLACE. PT VOIDING URINE AND NPO STATUS. PT RESTED WITH EYES CLOSED AND CALL LIGHT IN REACH.
[2024-04-16] MEDS ORDERED: Pantoprazole Sodium 40 MG Injection IV SCH (06:00)
[2024-04-16 07:06] LABS: Calcium, Blood 7.8 mg/dL (8.5-10.1); Creatinine, Blood 0.53 mg/dL (0.40-1.00); Potassium, Blood 4.4 mmol/L (3.5-5.5)
[2024-04-16] MEDS ORDERED: Benzocaine Oral Spray 0.5ML UD MT PRN (10:45)
--- NOTE | 2024-04-16 10:52 | NUR ---
Pt. is awake in bed and welcomes my visit. Pt. displays evidence of discomfort since her surgical procedure. Pt. verbalized that she had been seen by a eucharistic volunteer. Prayed with Pt. Pt. verbalized gratitude for the spiritual care visit.
[2024-04-16] MEDS ORDERED: Enoxaparin 40 MG/0.4 ML SYR SC ONE (12:00)
[2024-04-16] MEDS ORDERED: TPN Consult Notification XX ONE (12:40)
[2024-04-16] MEDS ORDERED: Parenteral Electolytes 40 ML,Potassium Phosphate Dibasic 30 MM,Multivitamins 10 ML,ZINC... IV SCH (17:00)
--- NOTE | 2024-04-16 18:52 | NUR ---
SUMMARY: PT IS POD1 EGD WITH NGT PLACEMENT. A/O, VSS. PT HAS HAD INTERMITTANT NAUSEA TODAY AND PAIN, MEDICATED PER EMAR. NGT TO LIS,SECURED TO NARE. TAPE REPLACED BY SUBPOENA SERVER ERIC. TOTAL OF 500ML OUT TODAY. PT REPORTS PASSING SOME GAS THIS MORNING. CPN INFUSING AND ANTIBIOTICS. NO ACUTE SAFETY CONCERNS. CALL LIGHT IN REACH.
[2024-04-17] VITALS (15 sets, daily range): BP systolic 123–169; BP diastolic 70–98
--- NOTE | 2024-04-17 04:53 | NUR ---
SHIFT SUMMARY PT HAS RESTED OFF AND ON T/O THE NIGHT. NG TUBE IN PLACE, PATENT WITH 300 MLS OF GREEN DISCHARGE OUT. PT HAS HAD INTERMITTENT NAUSEA, AND HEAVING. MEDS PER EMAR. INTERMITTENT ABD PAIN, PAIN RELIEVED WITH MEDS PER EMAR. PT HAS BEEN AMBULATING TO TO [facility] [place] 1 ASSIST. IV ANTIBIOTICS PER EMAR. BOWEL TONES HYPERACTIVE. PLAN IS FOR IMAGING TODAY, AND POSSIBLE PROCEDURE. BED IN LOWEST POSITION, CALL LIGHT WITHIN REACH.
[2024-04-17 06:41] LABS: Anion Gap 7 mmol/L (3-11); Blood Urea Nitrogen 17 mg/dL (8-24); Bun/Creatinine Ratio 31.9 (12.0-20.0); CO2, Blood 30 mmol/L (21-32); Calcium, Blood 8.2 mg/dL (8.5-10.1); Chloride, Blood 104 mmol/L (98-108); Creatinine, Blood 0.53 mg/dL (0.40-1.00); Glomerular Filtration Rate 103 (60-); Glucose, Blood 135 mg/dL (70-99); Potassium, Blood 4.6 mmol/L (3.5-5.5); Sodium, Blood 136 mmol/L (136-145); Triglycerides 84 mg/dL (30-160)
[2024-04-17 08:21] LABS: BASOPHILS ABSOLUTE AUTO 0.03 K/mm3 (0.00-0.23); BASOPHILS PERCENT AUTO 0 % (0-2); EOSINOPHILS ABSOLUTE AUTO 0.03 K/mm3 (0.00-0.68); EOSINOPHILS PERCENT AUTO 0 % (0-6); Hematocrit 43.3 % (33.0-51.0); Hemoglobin 14.2 g/dL (11.5-16.0); IMMATURE GRAN ABSOLUTE AUTO 0.04 K/mm3 (0.00-0.10); IMMATURE GRAN PERCENT AUTO 1 % (0-1); LYMPHOCYTES ABSOLUTE AUTO 0.93 K/mm3 (0.84-5.20); LYMPHOCYTES PERCENT AUTO 14 % (21-46); MONOCYTES ABSOLUTE AUTO 0.69 K/mm3 (0.16-1.47); MONOCYTES PERCENT AUTO 10 % (4-13); Mean Corpuscular HGB 29.6 pg (26.0-34.0); Mean Corpuscular HGB Conc 32.8 g/dL (31.5-36.5); Mean Corpuscular Volume 90 fL (80-100); Mean Platelet Volume 10.3 fL (9.1-12.4); NEUTROPHILS ABSOLUTE AUTO 4.97 K/mm3 (1.96-9.15); NEUTROPHILS PERCENT AUTO 74 % (41-73); Platelet Count 199 K/mm3 (150-400); RDW Coefficient Variation 13.5 % (11.7-14.2); RDW Standard Deviation 45.2 fL (35.1-46.3); White Blood Cell Count 6.69 K/mm3 (4.00-11.30)
[2024-04-17] MEDS ORDERED: Bupivacaine 0.5% HCl 5 MG/ML 30MLVIAL ONE ×2 (12:18→16:33)
[2024-04-17] MEDS ORDERED: Etomidate 2MG / ML 10ML Vial ONE (12:22)
[2024-04-17] MEDS ORDERED: Albumin (Human) 12.5gm/250ml 500 ML IV ONE (12:23)
[2024-04-17] MEDS ORDERED: FentaNYL Citrate 50 MCG/ML 2 ML Injection ONE ×4 (12:27→15:46)
[2024-04-17] MEDS ORDERED: SuccINYLCHOLINE Chloride 100 MG/5 ML 5MLSYR ONE (12:29)
[2024-04-17] MEDS ORDERED: Phenylephrine HCl 10mg/ml 1 ml Vial ONE (12:46)
[2024-04-17] MEDS ORDERED: Indocyanine Green 25 MG Vial IV ONE (12:50)
--- NOTE | 2024-04-17 13:08 | NUR ---
04/17/24 1308 Olivia Waldrop PT ON SCHEDULED ANTIBIOTICS AND RECIEVED PRIOR TO CASE START
--- NOTE | 2024-04-17 15:13 | NUR ---
TRANSFERING CARE OVER TO SMITH PATIÑO. PT STARTED SHIFT OUT AOX4 AND COOPERATIVE OF CARE. PT WAS TO NAUSEATED TO TAKE ORAL MEDS AND REFUSED THEM. PT TREATED FOR ABD PAIN PER EMAR. ABLE TO USE CALL LIGHT APPROPRIATELY. TAKEN DOWN TO HAVE PROCEDURE DONE BY DR MENDIOLA AT 1205.
[2024-04-17] MEDS ORDERED: Lidocaine HCl 2% 20 ML MDV ONE (15:24)
[2024-04-17] MEDS ORDERED: Rocuronium Bromide 10 MG/ML 5ML Injection IV ONE (15:24)
[2024-04-17] MEDS ORDERED: Dexamethasone Sod Phos 10 MG/ML 1ML VIAL ONE (15:24)
[2024-04-17] MEDS ORDERED: Labetalol HCL 5 MG/ML 4ML Injection (Single Dose) ONE (15:24)
[2024-04-17] MEDS ORDERED: Ketorolac Tromethamine 30mg Vial ONE (15:24)
[2024-04-17] MEDS ORDERED: Ondansetron HCl 2 MG / ML 2ML Vial ONE (15:24)
[2024-04-17] MEDS ORDERED: Sugammadex Sodium 200 MG/2ML SDV (100 MG/ML) ONE (16:33)
[2024-04-17] MEDS ORDERED: Lidocaine 1%-Epineph 1:100000 20 ML MDV ONE (16:33)
[2024-04-17] MEDS ORDERED: Ipratropium/Albuterol SulF 2.5-0.5MG/3 ML Amp ONE (17:17)
[2024-04-17] MEDS ORDERED: HYDROmorphone HCl/Pf 1MG SYR ONE (17:44)
--- NOTE | 2024-04-17 18:43 | NUR ---
POST OP: PT RETURNED TO ROOM 209 POST OP. PT DROWSY. NGT TO LIS. ABD INC X4 CDI WITH WOUND GLUE. OSTOMY TO LLQ WITH FLATUS PRESENT IN BAG. RESTARTED ON CPN. ABX DELAYED DUE TO PROCEDURE BUT RESTARTED PER ORDERS. PT SATS STABLE ON 2L O2. COARSE LS. OCCASIONAL WET COUGH. RATLIFF IN PLACE DRAINING CLEAR XOCHITL URINE. PAS PAS IN PLACE. DAUGHTER AT BEDSIDE, ATTENTIVE. WILL REPORT TO JUSTYN PATIÑO.
[2024-04-18 04:11] VITALS: BP 141/87
[2024-04-18 04:34] LABS: BASOPHILS ABSOLUTE AUTO 0.03 K/mm3 (0.00-0.23); BASOPHILS PERCENT AUTO 0 % (0-2); EOSINOPHILS ABSOLUTE AUTO 0.02 K/mm3 (0.00-0.68); EOSINOPHILS PERCENT AUTO 0 % (0-6); Hematocrit 39.4 % (33.0-51.0); Hemoglobin 13.1 g/dL (11.5-16.0); IMMATURE GRAN ABSOLUTE AUTO 0.05 K/mm3 (0.00-0.10); IMMATURE GRAN PERCENT AUTO 1 % (0-1); LYMPHOCYTES ABSOLUTE AUTO 1.21 K/mm3 (0.84-5.20); LYMPHOCYTES PERCENT AUTO 14 % (21-46); MONOCYTES ABSOLUTE AUTO 1.03 K/mm3 (0.16-1.47); MONOCYTES PERCENT AUTO 12 % (4-13); Mean Corpuscular HGB Conc 33.2 g/dL (31.5-36.5); Mean Corpuscular Volume 90 fL (80-100); Mean Platelet Volume 9.5 fL (9.1-12.4); NEUTROPHILS ABSOLUTE AUTO 6.29 K/mm3 (1.96-9.15); NEUTROPHILS PERCENT AUTO 73 % (41-73); Platelet Count 184 K/mm3 (150-400); RDW Coefficient Variation 13.5 % (11.7-14.2); RDW Standard Deviation 45.1 fL (35.1-46.3); Red Blood Cell Count 4.36 M/mm3 (3.80-5.20); White Blood Cell Count 8.63 K/mm3 (4.00-11.30)
[2024-04-18 04:57] LABS: Albumin, Blood 2.6 g/dL (3.4-5.0); Bilirubin, Total 0.3 mg/dL (0.1-1.0); Bun/Creatinine Ratio 28.9 (12.0-20.0); Creatinine, Blood 0.55 mg/dL (0.40-1.00); Globulin, Blood 2.7 g/dL (2.2-4.0); Potassium, Blood 4.5 mmol/L (3.5-5.5); Total Protein, Blood 5.3 g/dL (6.4-8.2)
--- NOTE | 2024-04-18 05:17 | NUR ---
SHIFT SUMMARY HUDOSN WAS DROWSY BUT ORIENTED ON ASSESSMENT, SHE HAD RECENTLY RETURNED FROM SURGERY. PT INTERMITTENTLY NAUSEOUS. PAIN IS MODERATELY CONTROLLED, MEDICATED PER EMAR. OSTOMY PRODUCING SANGUINEOUS FLUID AND FLATUS. RATLIFF DRAINING CLEAR YELLOW URINE TO GRAVITY. NO OTHER EVENTS OR CHANGES TO PT CONDITION.
[2024-04-18 07:26] VITALS: BP 156/95
--- NOTE | 2024-04-18 11:58 | NUR ---
DR. NATARAJAN ROUNDED AT 0930, NO NEW ORDERS REGARDING PICC LINE USAGE. CONTINUING USE OF WHITE AND LUO PORTS, RED PORT REMAINS CAPPED WITH TAPE IN PLACE AND LABELED "DO NOT USE."
--- NOTE | 2024-04-18 11:58 | NUR ---
DR. MENDIOLA ROUNDED AT 0815.
[2024-04-18 15:07] VITALS: BP 158/94
[2024-04-18 15:08] VITALS: BP 158/94
--- NOTE | 2024-04-18 16:00 | NUR ---
AWAITED ORDERS FROM DR. NATARAJAN REGARDING APPROPRIATE ACTIONS TO TAKE R/T PICC LINE. AT NOON FOLLOWED UP WITH DR. ALAMO ATTENDING PHYSICIAN REGARDING PICC USAGE. PER DR. ALAMO REMOVE PICC LINE R/T CONCERN FOR CONTAMINATION. SPOKE WITH KASHIF IN PHARMACY, SHE CONFIRMED THAT THE TPN THAT IS ORDERED FOR THIS PT MUST BE GIVEN THROUGH A CENTRAL LINE. SPOKE WITH GALINA PICC RN IN ICU, SHE STATES SHE IS UNABLE TO PLACE A PICC LINE TODAY, ALSO CHECKED WITH PCU, MEDICAL FLOOR AND ASHLY, PICC RN NOT AVALIABLE TODAY. DR. ALAMO NOTIFIED OF PICC RN AVAILABILITY TOMORROW, PER DR. ALAMO START POWER GLIDE TODAY AND RE-CONSULT DIETARY FOR TPN VS PPN TOMORROW. DISCUSSED OPTIONS WITH PT, SHE DECLINED A PERIPHERAL IV PLACEMENT R/T PREVIOUS BAD EXPERIENCE, PT WANTS A POWER GLIDE AND IS OK WITH PICC LINE PLACEMENT TOMORROW IF NECESSARY. MILK HAULER CONSULT PLACED FOR PPN VS TPN. ORDER PLACED FOR CLINIMIX AND LIPIDS OVERNIGHT.
[2024-04-18] MEDS ORDERED: Aa 4.25%/Calcium/Lytes/D5w 1,000 ML IV SCH (16:10)
[2024-04-18] MEDS ORDERED: Fat Emulsion 20 % IV 250 ML IV SCH (16:15)
--- NOTE | 2024-04-18 17:23 | NUR ---
PER KASHIF IN PHARMACY CLINIMIX IS OUT OF STOCK UNTIL AUGUST. DR. ALAMO NOTIFIED AND LR ORDERED UNTIL TOMORROW. STUDENT DEVELOPMENT COORDINATOR CONSULT ORDER PLACED.
[2024-04-18] MEDS ORDERED: Lactated Ringer's 1,000 ML IV SCH (17:25)
--- NOTE | 2024-04-18 18:08 | NUR ---
ENCOURAGED PT TO ATTEMPT OOB TO THE CHAIR THIS EVENING. PT DECLINED AND REPORTED FEELING TO TIRED TO GET OOB. PT EDUCATED ABOUT THE IMPORTANCE OF MOBILIZING OOB. SHE WAS ENCOURAGED TO SIT AT THE EOB TONIGHT BEFORE BED, PT WAS AGREED TO SIT AT THE EOB LATER THIS EVENING.
[2024-04-18 19:20] VITALS: BP 161/91
[2024-04-18 19:21] VITALS: BP 137/87
--- NOTE | 2024-04-18 19:46 | NUR ---
SHIFT SUMMARY PAIN HAS BEEN MANAGED WITH DILAUDID TODAY. PT ENCOURAGED TO GET OOB AND AMBULATE, SHE STATED SHE WAS TO TIRED THIS AFTERNOON TO DO SO. PT EDUCATED REGARDING THE IMPROTANCE OF AMBULATION. POWER GLIDE PLACED TO ANDER TODAY (SEE PREVIOUS NOTES). FAMILY HAS BEEN PRESENT AT THE BEDSIDE FOR SUPPORT. PT USES CALL LIGHT APPROPRIATELY. OSTOMY HAS HAD GOOD OUTPUT. NG TUBE DRAINING DARK GREEN LIQUID.
[2024-04-19 02:43] VITALS: BP 150/94
--- NOTE | 2024-04-19 04:28 | NUR ---
SHIFT SUMMARY HUDSON WAS ALERT AND FULLY ORIENTED AT START OF SHIFT. GOT PT TO STAND AT BEDSIDE, AND DO SEATED BEDSIDE EXCERCISES. PT STILL REQUIRING PAIN MEDS EVERY FEW HOURS, PT CONTINUES TO TOLERATE PRESENCE OF NG TUBE POORLY AND GAGS INTERMITTENTLY. NO ACUTE EVENTS OR NOTED CHANGES TO PT CONDITION.
[2024-04-19 04:29] LABS: BASOPHILS ABSOLUTE AUTO 0.02 K/mm3 (0.00-0.23); BASOPHILS PERCENT AUTO 0 % (0-2); EOSINOPHILS ABSOLUTE AUTO 0.09 K/mm3 (0.00-0.68); EOSINOPHILS PERCENT AUTO 1 % (0-6); Hematocrit 38.8 % (33.0-51.0); IMMATURE GRAN ABSOLUTE AUTO 0.08 K/mm3 (0.00-0.10); IMMATURE GRAN PERCENT AUTO 1 % (0-1); LYMPHOCYTES ABSOLUTE AUTO 1.08 K/mm3 (0.84-5.20); LYMPHOCYTES PERCENT AUTO 12 % (21-46); MONOCYTES ABSOLUTE AUTO 1.03 K/mm3 (0.16-1.47); MONOCYTES PERCENT AUTO 11 % (4-13); Mean Corpuscular HGB Conc 33.5 g/dL (31.5-36.5); Mean Corpuscular Volume 89 fL (80-100); Mean Platelet Volume 9.6 fL (9.1-12.4); NEUTROPHILS PERCENT AUTO 75 % (41-73); Platelet Count 187 K/mm3 (150-400); RDW Coefficient Variation 13.7 % (11.7-14.2); RDW Standard Deviation 45.1 fL (35.1-46.3); Red Blood Cell Count 4.34 M/mm3 (3.80-5.20)
[2024-04-19 04:49] LABS: Bun/Creatinine Ratio 20.1 (12.0-20.0); Calcium, Blood 8.1 mg/dL (8.5-10.1); Creatinine, Blood 0.55 mg/dL (0.40-1.00); Potassium, Blood 4.3 mmol/L (3.5-5.5)
[2024-04-19 07:26] VITALS: BP 156/96
[2024-04-19] MEDS ORDERED: Enoxaparin 40 MG/0.4 ML SYR SC SCH (10:00)
[2024-04-19 14:27] VITALS: BP 143/98
[2024-04-19 14:28] VITALS: BP 148/95
[2024-04-19] MEDS ORDERED: Parenteral Electolytes 40 ML,Potassium Phosphate Dibasic 30 MM,Multivitamins 10 ML,ZINC... IV SCH (17:00)
[2024-04-19] MEDS ORDERED: Lactated Ringer's 1,000 ML IV SCH (17:25)
--- NOTE | 2024-04-19 17:46 | NUR ---
SHIFT SUMMARY POD2 EX LAP/SIGMOID COLLECTOMY WITH NEW OSTOMY FORMATION, A/OX4, VSS, PAIN WELL MANAGED, NPO BUT ADVANCED TO SIPS/CHIPS PER SURGERY, SHE ELECTED TO ONLY HAVE A SMALL AMT OF ICE CHIPS AND TOLERATED THEM WELL, RATLIFF REMOVED THIS SHIFT, UP TO VOID USING BSC AND THEN ABLE TO AMBULATE TO THE BATHROOM
[2024-04-19 19:18] VITALS: BP 149/88
[2024-04-20 04:46] VITALS: BP 159/99
--- NOTE | 2024-04-20 05:45 | NUR ---
SHIFT SUMMARY HUDSON WAS A/O X 4 AT START OF SHIFT. PT FEELING BETTER OVERALL, STILL HAVING NAUSEA. PT NPO, MULTIPLE EPISODES OF EMESIS T/O NIGHT MEDICATED PER EMAR TO GOOD TEMPORARY EFFECT. [place] [facility] [place]. OUTPUTTING SOFT BROWN STOOL THROUGH OSTOMY.
[2024-04-20 07:20] VITALS: BP 152/100
[2024-04-20] MEDS ORDERED: Scopolamine Hydrobromide Patch TOP SCH (07:20)
[2024-04-20 07:32] LABS: Albumin, Blood 2.5 g/dL (3.4-5.0); Albumin/Globulin Ratio 0.9 (0.8-1.8); Bilirubin, Total 0.5 mg/dL (0.1-1.0); Bun/Creatinine Ratio 19.3 (12.0-20.0); Calcium, Blood 8.1 mg/dL (8.5-10.1); Creatinine, Blood 0.67 mg/dL (0.40-1.00); Globulin, Blood 2.9 g/dL (2.2-4.0); Phosphorus, Blood 2.6 mg/dL (2.5-4.9); Potassium, Blood 3.9 mmol/L (3.5-5.5); Total Protein, Blood 5.4 g/dL (6.4-8.2)
[2024-04-20 15:02] VITALS: BP 147/98
--- NOTE | 2024-04-20 18:02 | NUR ---
SHIFT SUMMARY POD3 EX LP WITH SIG COLECTOMY AND NEW OSTOMY FORMATION, A/OX4, VSS, TOLERATING NOTHING BY MOUTH TODAY BUT HER NAUSEA HAS BEENSIGNIFICATNLY BETTER TODAY WITH TOPICAL PATCH IN PLACE, NO IV N/V MEDICATIONOS NEEDED THIS SHIFT, SHE GOT UP AND WALKED IN THE HALLS, SHOWERED AND GOT HER HAIR BRUSHED, PAIN HAS BEEN IMPROVING BUT STILL NEEDING IV PAIN MEDS D/T NOT BEING ABLE TO TOLERATE PO, POOR NUTRITION INTAKE LAST 24 HOURS R/T HAVING A SINGLE LINE AND HAVING TO STOP HER PPN TO RUN ABX X2 3X PER DAY WHICH WAS DISCUSSED WITH RESIDENT AND DIETARY. NO ACUTE EVENTS THIS SHIFT, CALL LIGHT IN REACH.
[2024-04-20 19:57] VITALS: BP 147/94
[2024-04-21 04:40] VITALS: BP 123/87
[2024-04-21 05:34] LABS: Bun/Creatinine Ratio 24.4 (12.0-20.0); Calcium, Blood 8.5 mg/dL (8.5-10.1); Creatinine, Blood 0.66 mg/dL (0.40-1.00); Magnesium, Blood 2.1 mg/dL (1.6-2.4); Phosphorus, Blood 2.6 mg/dL (2.5-4.9); Potassium, Blood 3.8 mmol/L (3.5-5.5)
--- NOTE | 2024-04-21 06:26 | NUR ---
SHIFT SUMMARY PT S/P COLOSTOMY REVERSAL, PT HAS RESTED OFF AND ON T/O THE NIGHT. INTERMITTENT PAIN RELIEVED WITH MEDS PER EMAR. NG TUBE IN PLACE, NO OUTPUT FROM NG THIS SHIFT. PT PASSING GAS. VITALS STABLE. BED IN LOWEST POSITION, CALL LIGHT WITHIN REACH.
--- NOTE | 2024-04-21 06:34 | NUR ---
SHIFT SUMMARY PT HAS RESTED OFF AND ON T/O THE NIGHT. INTERMITTENT ABD PAIN RELIEVED WITH MEDS PER EMAR. PT STILL HAS INTERMITTENT NAUSEA, AND VOMITTING. SCOPOLAMINE PATCH IN PLACE. PT NPO. IV NUTRITION INFUSING. OSTOMY PUTTING OUT BROWN STOOL. SURGICAL SITE WNL. VITALS STABLE. BED IN LOWEST POSITION, CALL LIGHT WITHIN REACH.
[2024-04-21 07:08] VITALS: BP 136/102
[2024-04-21 14:15] VITALS: BP 151/95
--- NOTE | 2024-04-21 17:12 | NUR ---
SUMMARY PT HAS BEEN PAINFUL T/O DAY. MEDICATED PER ORDERS FOR PAIN. AMBULATED TWICE DURING SHIFT AND SAT UP IN CHAIR FOR AWHILE. PT HAS SCOPOLAMINE PATCH IN PLACE BUT HAS OCCASIONAL DRY HEAVES AND HAD 50 ML EMESIS THIS AFTERNOON. OSTOMY PUTTING OUT BROWN LIQUID. ATTEMPTED TO SHOW PT HOW TO BURP APPLIANCE THIS AM AND EMPTIED OSTOMY THIS AFTERNOON. PT ASKS QUESTIONS BUT DIVERTED GAZE FROM APPLIANCE. NOW RESTING IN BED. CALL LIGHT IN REACH.
[2024-04-21 19:39] VITALS: BP 126/77
[2024-04-22 04:35] VITALS: BP 141/91
--- NOTE | 2024-04-22 05:30 | NUR ---
PT HAS BEEN OFF TPN SINCE FRIDAY.I/O UNBALANCED WITH ONLY VOIDING 200 ML SO FAR THIS SHIFT.PT WITH HX OF HTN NOTING CURRENT VS WITH PLANS TO RESUME PTS HOME MED FOR BP TODAY PTS NAUSEA IS RESOLVING.I CALLED DR NAM AND RECEIVED ORDER FOR LR @ 125 ML/HR.
[2024-04-22] MEDS ORDERED: Lactated Ringer's 1,000 ML IV SCH (05:35)
--- NOTE | 2024-04-22 06:53 | NUR ---
SHIFT SUMMARY NOC. PT POD 4 FOR EX LAP COLECTOMY WITH OSTOMY. PT PAINFUL AND MEDICATED WITH REPORTED RELIEF. PT REPORTED MILD NAUSEA BUT DECLINED MEDICATION, NO VOMIT EPISODES. PT VOIDED MINIMAL AMOUNTS AND NEW ORDERS RECEIVED FOR LR 125. POWERGLIDE DID NOT DRAW THIS AM. PT RESTED WITH EYES CLOSED AND CALL LIGHT IN REACH.
[2024-04-22 06:56] LABS: Anion Gap 12 mmol/L (3-11); Blood Urea Nitrogen 13 mg/dL (8-24); Bun/Creatinine Ratio 21.5 (12.0-20.0); CO2, Blood 25 mmol/L (21-32); Calcium, Blood 8.1 mg/dL (8.5-10.1); Chloride, Blood 105 mmol/L (98-108); Glomerular Filtration Rate 100 (60-); Glucose, Blood 97 mg/dL (70-99); Magnesium, Blood 1.9 mg/dL (1.6-2.4); Phosphorus, Blood 2.7 mg/dL (2.5-4.9); Sodium, Blood 138 mmol/L (136-145); Triglycerides 114 mg/dL (30-160)
[2024-04-22 07:04] VITALS: BP 115/82
--- NOTE | 2024-04-22 07:56 | NUR ---
DR NEWSOME IN TO SEE PT.
--- NOTE | 2024-04-22 08:05 | NUR ---
DR CARDENAS IN TO SEE PT.
[2024-04-22] MEDS ORDERED: OxyCODONE HCL 5 MG TAB PO PRN (08:45)
[2024-04-22] MEDS ORDERED: HYDROmorphone HCl/Pf 1MG SYR IV PRN (08:45)
[2024-04-22 15:00] VITALS: BP 138/94
--- NOTE | 2024-04-22 17:25 | NUR ---
SUMMARY NO ACUTE CHANGES T/O SHIFT. PT'S OSTOMY APPLIANCE LEAKED THIS MORNING, PLACED NEW AND DISCUSSED/EDUCATED PT OF PLACING APPLIANCE. PT ENGAGED IN PROCESS. PT TRANSITIONING TO PO PAIN MEDS. TOOK PART OF ENSURE CLEAR TODAY. FULL LIQUID DINNER ORDERED. ADVISED PT TO TAKE SLOWLY. PT AMBULATED IN LOVE MULTIPLE TIMES DURING SHIFT AND SAT UP IN CHAIR. CALL LIGHT IN REACH.
[2024-04-22 19:50] VITALS: BP 150/97
[2024-04-23 00:39] VITALS: BP 146/91
[2024-04-23 03:28] VITALS: BP 140/83
[2024-04-23 06:42] VITALS: BP 158/85
--- NOTE | 2024-04-23 07:27 | NUR ---
SHIFT SUMMARY NOC. PT POD 5 FOR EX LAP COLECTOMY WITH OSTOMY. PT MEDICATED FOR PAIN AND NAUSEA THIS SHIFT. PT BECAME MORE NAUSEATED AFTER DRINKING APPLE JUICE THIS AM. NO VOMIT EPISODES. PT VOIDING URINE AND AMBULATES TO BR WITH SBA TO INDEPENDENT. STOMA BEEFY RED AND PRODUCING OUTPUT. PT RESTED WITH EYES CLOSED AND CALL LIGHT IN REACH.
[2024-04-23 14:27] VITALS: BP 151/92
--- NOTE | 2024-04-23 17:44 | NUR ---
PATIENT IN HALLWAY WALKING AROUND WITH HER IV POLE. THIS RN APPROACHED PATIENT TO SEE IS SHE NEEDED ANYTHING. PT REPORTED THAT SHE "JUST WAS GOING FOR A WLAK." PT THE REPORTED THAT HSE HAD "VOMITTED IN THE BATHROOM GARBAGE" WHILE SHE WAS USING THE RESTROOM. THIS RN TO ROOM TO ASSESS. THIS RN NOTED THAT THE TRASH BAG HAD GREEN BILE IN THE BOTTOM OF THE BAG. THIS RN NOTIFIED BUFFING TURNER AND COUNTER. BUFFING TURNER AND COUNTER TO NOTIFY SURGEON.
--- NOTE | 2024-04-23 17:50 | NUR ---
NOTIFIED DR. ORTIZ OF PT HAVING LARGE EMESIS X1, INCREASED ABD DISTENTION, AND SCANT OUTPUT IN COLOSTOMY. NO NEW ORDERS AT THIS TIME. WILL CONT TO MONITOR.
--- NOTE | 2024-04-23 18:02 | NUR ---
SHIFT SUMMARY PT A/OX4 AND COOPERATIVE OF CARE. PT ABLE TO EXPRESS NEEDS AND CALLS APPROPIATE. VSS THROUGHOUT SHIFT. PT ENDORSED ABD PAIN DURING SHIFT, TREATED PER EMAR. MD ENCOURAGED PT TO AVOID DILAUDID. PT INDEPENDENT IN ROOM AND WAS ABLE TO AMBULATE AROUND SURG FLOOR, TOLERATED WELL. OSTOMY HAD VERY LITTLE OUTPUT DURING SHIFT AND PT HAD AN EPISODE OF VOMITTING BILE AT ROUGHLY 1700, HCARGE RN NOTIFED MD. LR CONTINUES TO RUN PER EMAR. PT REFUSED MAJORITY OF PO MEDS, ONLY ATTEMPTED PO PAIN MED, SEE EMAR.
[2024-04-23 19:57] VITALS: BP 139/87
[2024-04-24 03:01] VITALS: BP 141/87
--- NOTE | 2024-04-24 05:52 | NUR ---
SHIFT SUMMARY POD 7-LAP SIGMOID COLECTOMY W/OSTOMY. LLQ OSTOMY W/NO OUTPUT OR FLATUS ENTIRE PM SHIFT OR PREVIOUS DAY SHIFT 04/23. EMPTIED A TOTAL OF 6ML THICK, STRINGY, DRK GREEN/BROWN LIQUID BM FROM PREVIOUS OSTOMY APPLIANCE, DAY RN REPORTED IT WAS IN BAG THEIR WHOLE SHIFT. CLEANSED AROUND OSTOMY & APPLIED NEW APPLIANCE, NO FLATUS OR BM IN NEW BAG. LAP SITES OPEN TO AIR W/O DRAINAGE. PT REPORTS INCREASED BLOATING, INCREASED NAUSEA, MEDICATED W/ZOFRAN PRIOR TO PO PAIN MEDS, REPORTS -05/11 GENERAL ABD DISCOMFORT STATES MINIMAL RELIEF W/5MG OXYCODONE. HESITANT TO TAKE IN MUCH PO, ONLY TOLERATING SM SIPS WATER, ICE CHIPS & A FEW BITES APPLESAUCE. NO EMESIS THIS SHIFT. BELCHING FREQUENTLY. ABD SOFT & TENDER TO PALPATION. ACTIVE BT A4Q. CALL LIGHT IN REACH & PT ABLE TO MAKE NEEDS KNOWN. AOX4. VSS.
[2024-04-24 05:58] LABS: Anion Gap 16 mmol/L (3-11); Blood Urea Nitrogen 7 mg/dL (8-24); CO2, Blood 21 mmol/L (21-32); Chloride, Blood 104 mmol/L (98-108); Creatinine, Blood 0.64 mg/dL (0.40-1.00); Glomerular Filtration Rate 99 (60-); Glucose, Blood 81 mg/dL (70-99); Potassium, Blood 3.9 mmol/L (3.5-5.5); Sodium, Blood 137 mmol/L (136-145); Triglycerides 165 mg/dL (30-160)
[2024-04-24 07:31] VITALS: BP 137/85
[2024-04-24 16:30] VITALS: BP 150/92
--- NOTE | 2024-04-24 18:23 | NUR ---
Shift summary: Assumed care of this patient this afternoon due to staffing issues. Pt alert and oriented to person, place, date, and situation. She is independent and uses call light appropriately. VSS, see vital signs documentation. Pt with abdominal pain, medicating per EMAR. Will monitor patient and report to shift supervisor film processing RN.
[2024-04-24 19:28] VITALS: BP 155/93
[2024-04-24] MEDS ORDERED: Prochlorperazine Edisylate 10 mg Vial IV PRN (23:05)
[2024-04-24 23:50] VITALS: BP 137/91
--- NOTE | 2024-04-24 23:53 | NUR ---
UPDATE AROUND 2229 CALLED INTO PTS RM BY JADE Kohler. PT HAD 1300ML DRK BROWN/GREEN EMESIS. MEDICATED W/ZOFRAN. STILL NO OUTPUT OSTOMY. PT REPORTS INCREASED BLOATED FEELING & DISTENTION. ABD SOFT, TENDER & PAINFUL. INFORMED DR FORD & HE ORDERED REAPEAT CT & NPO @THIS TIME. WILL CONT TO MONITOR.
--- NOTE | 2024-04-25 02:20 | NUR ---
CRITICAL CT NOZZLE WORKER REPORTED PT HAD CRITICAL CT RESULTS-THROMBOSIS & SBO. DR NAM NOTIFIED, CAME TO PTS RM PCU 4, ASSESSED PT & REPORTED HE WOULD REACH OUT TO DR ORTIZ. WILL CONT TO MONITOR.
[2024-04-25 03:29] VITALS: BP 137/89
[2024-04-25 03:48] LABS: BASOPHILS ABSOLUTE AUTO 0.05 K/mm3 (0.00-0.23); BASOPHILS PERCENT AUTO 0 % (0-2); EOSINOPHILS ABSOLUTE AUTO 0.11 K/mm3 (0.00-0.68); EOSINOPHILS PERCENT AUTO 1 % (0-6); Hematocrit 39.9 % (33.0-51.0); Hemoglobin 13.3 g/dL (11.5-16.0); IMMATURE GRAN PERCENT AUTO 2 % (0-1); LYMPHOCYTES ABSOLUTE AUTO 1.44 K/mm3 (0.84-5.20); LYMPHOCYTES PERCENT AUTO 13 % (21-46); MONOCYTES ABSOLUTE AUTO 0.83 K/mm3 (0.16-1.47); MONOCYTES PERCENT AUTO 7 % (4-13); Mean Corpuscular HGB 29.3 pg (26.0-34.0); Mean Corpuscular HGB Conc 33.3 g/dL (31.5-36.5); Mean Corpuscular Volume 88 fL (80-100); Mean Platelet Volume 9.4 fL (9.1-12.4); NEUTROPHILS ABSOLUTE AUTO 8.59 K/mm3 (1.96-9.15); NEUTROPHILS PERCENT AUTO 77 % (41-73); Platelet Count 271 K/mm3 (150-400); RDW Coefficient Variation 13.7 % (11.7-14.2); RDW Standard Deviation 43.8 fL (35.1-46.3); Red Blood Cell Count 4.54 M/mm3 (3.80-5.20); White Blood Cell Count 11.22 K/mm3 (4.00-11.30)
[2024-04-25 04:10] LABS: Albumin, Blood 2.7 g/dL (3.4-5.0); Albumin/Globulin Ratio 0.8 (0.8-1.8); Bilirubin, Total 0.5 mg/dL (0.1-1.0); Bun/Creatinine Ratio 7.9 (12.0-20.0); Calcium, Blood 8.6 mg/dL (8.5-10.1); Creatinine, Blood 0.63 mg/dL (0.40-1.00); Globulin, Blood 3.4 g/dL (2.2-4.0); Total Protein, Blood 6.1 g/dL (6.4-8.2)
[2024-04-25 04:26] LABS: Anti-Xa UFH, PHA Monitoring <0.10 IU/mL; International Normalized Ratio 1.02; Prothrombin Time Results 10.9 Sec (9.7-11.5)
[2024-04-25] MEDS ORDERED: Heparin Sodium 5000 Units/ML 1ML MDV IV ONE (04:30)
[2024-04-25] MEDS ORDERED: Heparin Sodium,Porcine/0.5 NS 500 ML IV SCH (04:30)
--- NOTE | 2024-04-25 05:31 | NUR ---
SHIFT SUMMARY POD 8-LAP SIGMOID COLECTOMY W/OSTOMY. NO OUTPUT IN OSTOMY FOR OVER 24HR. PT REPORTS INCREASED BLOATING & ABD PRESSURE. ABD SOFT & TENDER TO PALPATION, DISTENDED. DENIES FLATUS, OSTOMY HASNT BEEN BURPED. PT HAD EPISODE 1300ML DRK BROWN/GREEN EMESIS, READ PREVIOUS NOTE. DR NAM ORDERED HEP GTT THIS AM R/T CT RESULTS OF PORTAL VEIN THROMBIS, 18U/KG/HR-PHARMACY MANAGING. HAVE PLACED PT NPO EXCEPT ICE CHIPS @THIS TIME UNTIL FURTHER NOTICE. VSS. CALL LIGHT IN REACH & PT ABLE TO MAKE NEEDS KNOWN.
[2024-04-25] MEDS ORDERED: DiphenhydrAMINE HCl 50 MG/ML 1ML Vial IV PRN (06:20)
[2024-04-25 07:57] VITALS: BP 139/89
[2024-04-25] MEDS ORDERED: Cefepime HCl 2,000 MG in NS 100 ML IV SCH (08:00)
[2024-04-25] MEDS ORDERED: Cefepime 2000 mg Vial ONE ×3 (08:24→23:26)
[2024-04-25] MEDS ORDERED: NS 100 ML IV ONE ×3 (08:25→23:26)
--- NOTE | 2024-04-25 10:00 | NUR ---
NGT PLACEMENT UPDATE: PMD, RN, and CN at bedside to discuss bedside NGT placement without sedation. Pt pleasantly refused bedside procedure. Pt explained concern regarding previous difficulty w/NGT placement involving multiple attempts. Pt also educated CN, primary RN, and PMD of discussion pt had w/surgeon who needed to use sedation for placement post previous procedure. Care team verbalized understanding. Awaiting plan update from surgeon.
--- NOTE | 2024-04-25 10:25 | NUR ---
ASSUMED CARE OF PT AT 0700 THIS AM. N/V REPORTED OVERNIGHT, SEE ABD CT RESULTS. PT RESTING QUIETLY IN BED WITH EYES CLOSED, RESPIRATIONS EVEN AND UNLABORED AT START OF SHIFT. DR CARDENAS ROUNDED ON PT AT APORX 0745, UPDATED ON OVERNIGHT EVENTS AND IS AWARE OF CT RESULTS. ORDER PLACED FOR NGT PLACEMENT. THIS RN DISCUSSED WITH DR CARDENAS AND DR ZAVALA THE PREVIOUS DIFFICULTY THIS ADMISSION WITH PLACING NGT FOR THIS PT. SEE DR MENDIOLA'S OPERATIVE NOTE FROM 04/15/24 WHERE PT NEEDED NGT PLACED VIA ENDOSCOPY W ANESTHESIA D/T HER PRIOR HIATAL HERNIA REPAIR. DR CARDENAS AND DR ZAVALA STATED THEY WOULD DISCUSS THIS W DR ORTIZ, ON-RYLEE SURG/GI TODAY. THIS RN DECLINED TO ATTEMPT NGT PLACEMENT AT THIS TIME. LATER IN THE AM, DR CARDENAS RETURNED AND STATED THAT HE WOULD TRY TO PLACE NGT HIMSELF INSTRUCTED BY DR ORTIZ. THIS RN AND ORACLE WMS CONSULTANT MAURA IN ROOM W DR CARDENAS TO DISCUSS THE PROCEDURE WITH THE PT. THE PT REFUSED NGT PLACEMENT AT BEDSIDE, BUT IS AGREEABLE TO HAVE NGT PLACED VIA ENDOSCOPY W ANESTHESIA WAS DONE PRIOR. PT VERBALIZES UNDERSTANDING OF NEED FOR NGT. DR CARDENAS STATES HE WILL TALK WITH DR ORTIZ AGAIN AND DISCUSS CARE PLAN AT THIS POINT. THIS RN WILL CONTINUE TO MONITOR, MEDICATE PER EMAR, AND UPDATE DR CARDENAS/DR ZAVALA OF CHANGES IN PT CONDITION. PT CONTINUES TO REST IN BED, STATES SHE IS UNCOMFORTABLE, NAUSEATED AND HAS INTERMITTENT ABD PAIN BUT DECLINES MEDICATIONS AT THIS TIME. PT IS ABLE TO USE CALL LIGHT FOR NEEDS, CALL LIGHT IN REACH, WILL CONTINUE TO MONITOR PT STATUS.
[2024-04-25 16:31] VITALS: BP 126/91
--- NOTE | 2024-04-25 17:29 | NUR ---
PT'S CONDITION HAS APPEARED TO IMPROVE T/O THE DAY TODAY. NO FURTHER EPISODES OF VOMITIING, PT STATES HER NAUSEA IS IMPROVED. PT REPORTED PASSING GAS THROUGH HER COLOSTOMY AND HAD A TOTAL OF 400ML OF DARK BROWN/GREEN LIQUID OUTPUT. PT MEDICATED W OXYCODONE X 1 FOR PAIN. PT'S FAMILY IN TO VISIT THIS AFTERNOON. NO ACUTE CHANGES. PT REMAINS A&OX4, ABLE TO USE CALL LIGHT FOR NEEDS. ABLE TO AMBULATE TO AND FROM RESTROOM. HEPARIN GTT CONTINUES PER PHARMACY. WILL CONTINUE TO MONITOR AND GIVE REPORT TO NOC SHIFT RN.
[2024-04-25 19:29] VITALS: BP 138/103
[2024-04-25 19:31] VITALS: BP 148/94
[2024-04-25] MEDS ORDERED: Dose Adjust by Pharmacy XX STA (19:36)
--- NOTE | 2024-04-25 23:09 | NUR ---
ASSUMPTION OF CARE AFTER RECEIVING REPORT FROM ALEXIA PATIÑO, THIS RN ASSUMED CARE AT APPROX 1915. PATIENT ALERT AND ORIENTED X4. INDEPENDENT IN ROOM, CALLS APPROPRIATELY FOR ASSISTANCE PRN. MOVES ALL EXTREMITIES EQUALLY WITH GENERALIZED WEAKNESS. PERRLA. PAIN 3/10 GENERALIZED T/O - DENIES PAIN MEDICATION NEED AT THIS TIME. AFEBRILE. IS SURGICAL STATUS. NO TELEMETRY MONITORING ORDERED. DENIES CHEST PAIN, PRESSURE. BP STABLE. ON ROOM AIR, SATs >90%. RR EVEN, UNLABORED. ABD TENDER, HYPOACTIVE BOWEL TONES. DENIES NAUSEA AT THIS TIME - REPORTS THAT IT IS IMPROVING SINCE LAST NIGHT. OSTOMY WITH FREQUENT GREENISH BROWN LIQUID OUTPUT. OSTOMY DEVICE CHANGED THIS EVENING WAS LEAKING. CALL LIGHT IN REACH.
[2024-04-26 01:02] LABS: BASOPHILS ABSOLUTE AUTO 0.03 K/mm3 (0.00-0.23); BASOPHILS PERCENT AUTO 0 % (0-2); EOSINOPHILS PERCENT AUTO 1 % (0-6); Hematocrit 35.1 % (33.0-51.0); Hemoglobin 11.8 g/dL (11.5-16.0); IMMATURE GRAN ABSOLUTE AUTO 0.11 K/mm3 (0.00-0.10); IMMATURE GRAN PERCENT AUTO 1 % (0-1); LYMPHOCYTES ABSOLUTE AUTO 1.75 K/mm3 (0.84-5.20); LYMPHOCYTES PERCENT AUTO 22 % (21-46); MONOCYTES ABSOLUTE AUTO 0.65 K/mm3 (0.16-1.47); MONOCYTES PERCENT AUTO 8 % (4-13); Mean Corpuscular HGB 29.7 pg (26.0-34.0); Mean Corpuscular HGB Conc 33.6 g/dL (31.5-36.5); Mean Corpuscular Volume 88 fL (80-100); Mean Platelet Volume 9.1 fL (9.1-12.4); NEUTROPHILS ABSOLUTE AUTO 5.37 K/mm3 (1.96-9.15); NEUTROPHILS PERCENT AUTO 67 % (41-73); Platelet Count 239 K/mm3 (150-400); RDW Coefficient Variation 13.6 % (11.7-14.2); RDW Standard Deviation 44.1 fL (35.1-46.3); Red Blood Cell Count 3.97 M/mm3 (3.80-5.20); White Blood Cell Count 8.01 K/mm3 (4.00-11.30)
[2024-04-26] MEDS ORDERED: Clarify Drug Order XX ONE (01:20)
[2024-04-26 01:21] LABS: Albumin, Blood 2.3 g/dL (3.4-5.0); Albumin/Globulin Ratio 0.8 (0.8-1.8); Bilirubin, Total 0.4 mg/dL (0.1-1.0); Bun/Creatinine Ratio 9.3 (12.0-20.0); Calcium, Blood 7.8 mg/dL (8.5-10.1); Creatinine, Blood 0.65 mg/dL (0.40-1.00); Globulin, Blood 2.9 g/dL (2.2-4.0); Potassium, Blood 3.8 mmol/L (3.5-5.5); Total Protein, Blood 5.2 g/dL (6.4-8.2)
[2024-04-26 02:25] VITALS: BP 145/90
--- NOTE | 2024-04-26 05:19 | NUR ---
SHIFT SUMMARY NO ACUTE EVENTS SINCE ASSUMPTION OF CARE NOTE. PATIENT SLEPT T/O NIGHT, EASILY AROUSABLE WITH VERBAL STIMULI. INDEPENDENT IN ROOM. CALLS PRN FOR ASSISTANCE WITH AMBULATION, OSTOMY CARE. VSS. SBP 140s. DENIES CHEST PAIN, PRESSURE. HEPARIN GTT INFUSING PER EMAR. REMAINS ON ROOM AIR, SATs >92%. RR EVEN, UNLABORED. NO EPISODES OF NAUSEA, VOMITING T/O NIGHT. TOLERATING ICE CHIPS. PAIN REMAINS TOLERABLE T/O. OSTOMY DEVICE CHANGED X2 THIS SHIFT. 900ML OUT OF OSTOMY. GREEN/BROWN LOOSE OUTPUT. VOIDING. IVF INFUSING PER EMAR. CALL LIGHT IN REACH. WILL CONTINUE TO MONITOR AND REPORT TO ONCOMING RN.
[2024-04-26] MEDS ORDERED: Cefepime 2000 mg Vial ONE (08:21)
[2024-04-26] MEDS ORDERED: NS 100 ML IV ONE (08:21)
[2024-04-26 08:33] VITALS: BP 138/94
--- NOTE | 2024-04-26 12:02 | NUR ---
UPDATE PT REMAINS ALERT AND ORIENTED. VS STABLE. PT CONTINUES TO DENY PAIN AT REST. OSTOMY CHANGED DUE TO LEAKING. PT PARTICIPATING IN CARE OF OSTOMY. PT UP INDEPENDENTLY TO BATHROOM NEEDED. BED ASSIGNMENT PROVIDED ON SURGICAL FLOOR. REPORT GIVEN TO SURGICAL FLOOR RN TO ASSUME CARE. PT TAKEN OVER VIA WC
--- NOTE | 2024-04-26 12:03 | NUR ---
ARRIVAL TO SURGICAL UNIT ALERT & PLEASANT. OSTOMY WNL. ICE CHIPS GIVEN. DENIES NEEDS.
[2024-04-26] MEDS ORDERED: Dose Adjust by Pharmacy XX STA (15:57)
[2024-04-26 16:20] VITALS: BP 131/93
--- NOTE | 2024-04-26 19:58 | NUR ---
SHIFT SUMMARY SINCE ARRIVING TO SURGICAL UNIT PT HAS DONE WELL. AMBULATING IN HALLWAY, TOLERATING SMALL AMOUNTS OF CLEAR LQs, SMALL AMOUNT OF OUTPUT IN OSTOMY, OSTOMY CHANGE THIS AFTERNOON DUE TO LEAKING. PT UPBEAT & CHEERFUL.
[2024-04-26 21:32] VITALS: BP 140/84
[2024-04-27 03:13] VITALS: BP 149/96
[2024-04-27 05:02] LABS: Hematocrit 36.6 % (33.0-51.0); Hemoglobin 12.1 g/dL (11.5-16.0); Mean Platelet Volume 9.7 fL (9.1-12.4); Platelet Count 262 K/mm3 (150-400)
[2024-04-27 05:23] LABS: Albumin, Blood 2.5 g/dL (3.4-5.0); Albumin/Globulin Ratio 0.8 (0.8-1.8); Bilirubin, Total 0.5 mg/dL (0.1-1.0); Bun/Creatinine Ratio 5.8 (12.0-20.0); Calcium, Blood 8.3 mg/dL (8.5-10.1); Creatinine, Blood 0.69 mg/dL (0.40-1.00); Globulin, Blood 3.1 g/dL (2.2-4.0); Potassium, Blood 3.8 mmol/L (3.5-5.5); Total Protein, Blood 5.6 g/dL (6.4-8.2)
[2024-04-27] MEDS ORDERED: Clarify Drug Order XX ONE (05:30)
[2024-04-27 07:13] VITALS: BP 136/90
[2024-04-27 14:35] VITALS: BP 121/98
[2024-04-27] MEDS ORDERED: Calcium Carbonate 500 MG Tab Chew PO PRN (15:40)
--- NOTE | 2024-04-27 17:22 | NUR ---
SUMMARY NO ACUTE CHANGES T/O SHIFT. PT INDEPENDENT IN ROOM. EMPTIED OSTOMY BAG INDEPENDENTLY THIS EVENING. C/O OF HEART BURN THIS AFTERNOON. OBTAINED ORDERS FOR TUMS. ADMINISTERED PER ORDERS.
[2024-04-27 19:45] VITALS: BP 139/98
[2024-04-28 02:18] VITALS: BP 141/83
--- NOTE | 2024-04-28 04:36 | NUR ---
SHIFT SUMMARY POD11 SIGMOID COLECTOMY W/ OSTOMY. STOMA REMAINS PINK AND BEEFY, PASSING FLATTUS. PT IS BEGINNING TO BURP APPLIANCE ON OWN. MIDLINE REMAINS C/D/I. VSS. PT SLEPT ON AND OFF T/O THE NIGHT. TOLLERATING FULL LIQUIDS W/O N/V. IVF INFUSING PER EMAR, HEPARIN INFUSING PER EMAR. PT MEDICATED FOR PAIN WITH 5MG OXY W/ GOOD RESULTS. OVERALL, NO ACUTE EVETS NOTED. PLAN TO CONTINUE HEP DRIP PER HOSPITALIST AND D/C ON BLOOD THINNER WHEN MEDICALLY APPROPRIATE.
[2024-04-28 05:08] LABS: BASOPHILS ABSOLUTE AUTO 0.04 K/mm3 (0.00-0.23); BASOPHILS PERCENT AUTO 1 % (0-2); EOSINOPHILS ABSOLUTE AUTO 0.12 K/mm3 (0.00-0.68); EOSINOPHILS PERCENT AUTO 2 % (0-6); Hematocrit 35.1 % (33.0-51.0); Hemoglobin 11.9 g/dL (11.5-16.0); IMMATURE GRAN ABSOLUTE AUTO 0.05 K/mm3 (0.00-0.10); IMMATURE GRAN PERCENT AUTO 1 % (0-1); LYMPHOCYTES ABSOLUTE AUTO 1.46 K/mm3 (0.84-5.20); LYMPHOCYTES PERCENT AUTO 20 % (21-46); MONOCYTES ABSOLUTE AUTO 0.57 K/mm3 (0.16-1.47); MONOCYTES PERCENT AUTO 8 % (4-13); Mean Corpuscular HGB 29.9 pg (26.0-34.0); Mean Corpuscular HGB Conc 33.9 g/dL (31.5-36.5); Mean Corpuscular Volume 88 fL (80-100); Mean Platelet Volume 9.8 fL (9.1-12.4); NEUTROPHILS ABSOLUTE AUTO 5.03 K/mm3 (1.96-9.15); NEUTROPHILS PERCENT AUTO 69 % (41-73); Platelet Count 257 K/mm3 (150-400); RDW Coefficient Variation 14.1 % (11.7-14.2); RDW Standard Deviation 45.1 fL (35.1-46.3); Red Blood Cell Count 3.98 M/mm3 (3.80-5.20); White Blood Cell Count 7.27 K/mm3 (4.00-11.30)
[2024-04-28] MEDS ORDERED: Clarify Drug Order XX ONE (05:30)
--- NOTE | 2024-04-28 05:32 | NUR ---
FLUID BALANCE PLEASE NOTE THE ENTRY OF 5002 MLS OF IVF CHARTED ON THE MORNING OF 04/28/24 IS ACCURATE IN RELATION TO WHAT WAS CLEARED OFF OF THE IV PUMP AND NOT WHAT WAS INFUSED T/O THE NIGHT.
[2024-04-28 07:21] VITALS: BP 146/95
[2024-04-28 07:38] LABS: Albumin, Blood 2.5 g/dL (3.4-5.0); Albumin/Globulin Ratio 0.8 (0.8-1.8); Bilirubin, Total 0.4 mg/dL (0.1-1.0); Calcium, Blood 8.7 mg/dL (8.5-10.1); Creatinine, Blood 0.67 mg/dL (0.40-1.00); Potassium, Blood 3.5 mmol/L (3.5-5.5); Total Protein, Blood 5.5 g/dL (6.4-8.2)
--- NOTE | 2024-04-28 14:29 | NUR ---
Pt. is awake in bed when she welcomes my visit. Pt. is pleasant as she verbalized her medical progress. Considered matters of butch and family. Pt. displayed evidence of awareness, engagement, and trust. This chief technology officer excused himself after the Eucharistic volunteer arrived.
[2024-04-28 15:10] VITALS: BP 118/80
--- NOTE | 2024-04-28 18:40 | NUR ---
SHIFT SUMMARY POD 11 SIGMOID COLECOMY WITH OSTOMY. STOMA RED AND BEEFY. PUTTING OUT LIQUID BROWN STOOL. LAP SITES AND MIDLINE REMAIN C/D/I. PT REMAINED PLEASENT THROUGHOUT THE DAY. WORKED WITH OT/PT AND AMBULATED THE LOVE. MOVING INDEPENDENTLY IN THE ROOM, TO THE BATHROOM AND BACK TO BED. USES CALL LIGHT APPROP. EATING/DRINKING/VOIDING WELL. DECLINES N/V. PTS PAIN MANAGED PER EMAR. NO ACUTE EVENTS TODAY. VSS.
[2024-04-28 20:03] VITALS: BP 117/76
[2024-04-29 04:56] VITALS: BP 137/89
[2024-04-29 05:30] LABS: Hematocrit 37.2 % (33.0-51.0); Hemoglobin 12.5 g/dL (11.5-16.0); Mean Platelet Volume 9.5 fL (9.1-12.4); Platelet Count 264 K/mm3 (150-400)
--- NOTE | 2024-04-29 06:54 | NUR ---
NO ACUTE CHANGES DURING SHIFT. PT IND WITH OSTOMY CARES. REPORTS URINATION 4 TIMES DURING SHIFT AND EMPTYING COLOSTOMY BAG ONCE. PAIN MANAGED WITH PRN PAIN MEDS.
[2024-04-29] MEDS ORDERED: Dose Adjust by Pharmacy XX STA (07:13)
[2024-04-29 07:29] VITALS: BP 133/98
[2024-04-29] MEDS ORDERED: Apixaban 5 MG Tab PO SCH (09:00)
[2024-04-29 14:57] VITALS: BP 136/90
--- NOTE | 2024-04-29 15:03 | NUR ---
Pt. is awake in bed and welcomes my visit. Pt. is very pleasant and rapport is quickly re-established as this high school counselor has previously visited this Pt. Pt. displays evidence of occassional biting pain, but continues engaging regradless. Consderedmatters of butch and belief in detail. Pt. also verbalized questions regarding her prognosis on blood thinners. Listen with empathy and a calming presence. During our visit Dr. Rogers visited with the news that the Pt. would be discharged home today. After the doctor left this high school counselor preyed with the Pt.. Pt. verbalized gratitude for the spiritual care visit.
[2024-04-29] MEDS ORDERED: ELIQUIS5 M2 PO (15:09)
[2024-04-29] MEDS ORDERED: OXYC5 PO (15:11)
--- NOTE | 2024-04-29 17:02 | NUR ---
DISCHARGE PT LEFT VIA WHEELCHAIR. DISCHARGE INSTRUCTIONS GONE OVER WITH PATIENT. ALL BELONGINGS TAKEN WITH PATIENT. PT CONTINUING TO MANAGE HER OWN OSTOMY. GOOD OUTPUT. TOLERATING DIET WELL. NO NAUSEA. PAIN WELL CONTROLLED PER EMAR. LAP SITES REMAIN CDI. OSTOMY APPLIANCE CHANGED PRIOR TO DISCHARGE. INSTRUCTIONS GONE OVER WIHT PATIENT AND SHE ACTIVELY PARTICIPATED IN CHANGE. SKIN AROUND STOMA FREE OF REDNESS. STOMA REMAINS PINK AND BEEFY.
[2024-05-06] MEDS ORDERED: Apixaban 5 MG Tab PO SCH (09:00)
== END 2024-04-29 16:52 | disposition home or self-care (01) | DRG 329 ==
LOC: ER 15:34 → SURS 20:52 → PCU 04-24 13:32 → SURS 04-26 11:58
PROVIDERS: Family Medicine; Internal Medicine; Student in an Organized Health Care Education/Training Program; Surgery; ADMIT Student in an Organized Health Care Education/Training Program
PROC: 0D9680Z Drainage of Stomach with Drainage Device, Via Natural or Artificial Opening Endoscopic (ICD-10-PCS; 2024-04-15)
PROC: 0DJ08ZZ Inspection of Upper Intestinal Tract, Via Natural or Artificial Opening Endoscopic (ICD-10-PCS; 2024-04-15)
PROC: 0DQ84ZZ Repair Small Intestine, Percutaneous Endoscopic Approach (ICD-10-PCS; 2024-04-17)
PROC: 0D1N4Z4 Bypass Sigmoid Colon to Cutaneous, Percutaneous Endoscopic Approach (ICD-10-PCS; 2024-04-17)
PROC: 8E0W4CZ Robotic Assisted Procedure of Trunk Region, Percutaneous Endoscopic Approach (ICD-10-PCS; 2024-04-17)
PROC: 0DBN4ZZ Excision of Sigmoid Colon, Percutaneous Endoscopic Approach (ICD-10-PCS; principal; 2024-04-17 11:00)
DX: K56.609 Unspecified intestinal obstruction, unspecified as to partial versus complete obstruction (principal); I81 Portal vein thrombosis; K44.9 Diaphragmatic hernia without obstruction or gangrene; J44.9 Chronic obstructive pulmonary disease, unspecified; I10 Essential (primary) hypertension; Z93.3 Colostomy status; R54 Age-related physical debility; R03.0 Elevated blood-pressure reading, without diagnosis of hypertension; F32.A Depression, unspecified; K66.0 Peritoneal adhesions (postprocedural) (postinfection); G47.00 Insomnia, unspecified; E87.6 Hypokalemia; F41.0 Panic disorder [episodic paroxysmal anxiety]; Z86.010 Personal history of colon polyps; Z85.41 Personal history of malignant neoplasm of cervix uteri; G43.909 Migraine, unspecified, not intractable, without status migrainosus; E66.9 Obesity, unspecified; K58.9 Irritable bowel syndrome, unspecified; K21.9 Gastro-esophageal reflux disease without esophagitis; Z90.49 Acquired absence of other specified parts of digestive tract; Z90.710 Acquired absence of both cervix and uterus; Z79.891 Long term (current) use of opiate analgesic; Z79.899 Other long term (current) drug therapy; Z88.5 Allergy status to narcotic agent; Z88.8 Allergy status to other drugs, medicaments and biological substances; Z88.0 Allergy status to penicillin; E78.5 Hyperlipidemia, unspecified; Z98.890 Other specified postprocedural states; I25.2 Old myocardial infarction; Z68.28 Body mass index [BMI] 28.0-28.9, adult
CPT/HCPCS: 36415; 74018; 74177; 80048; 80053; 82947; 83690; 83735; 84100; 84478; 85014; 85018; 85025; 85049; 85520; 85610; 85730; 88307; 93005; 93010; 94760; 94762; 96374-59; 96375; 97116; 97161; 99285-25; A9270; J0330; J0692; J0780; J1100; J1170; J1200; J1644; J1650; J1885; J2060; J2250; J2270; J2371; J2405; J2470; J2704; J2765; J3010; J3411; J3480; J7050; J7120; P9045; Q9967

== ENCOUNTER 2024-06-04 08:07 | Emergency (ER) | payer BC, OTHER ==
[~2024-06-04] VITALS: Ht 175.3 cm; Wt 74.8 kg
[~2024-06-04 08:07] MED LIST changes: +ADALAT CC30 M2 PO; +BUPROPION XL150 M1 PO; +ELIQUIS5 M2 PO; +ESCI20 PO; +PROAIR RESPICL90 MCG INH; +TRAZ100 PO
[2024-06-04 08:40] LABS: BASOPHILS ABSOLUTE AUTO 0.05 K/mm3 (0.00-0.23); BASOPHILS PERCENT AUTO 1 % (0-2); EOSINOPHILS PERCENT AUTO 2 % (0-6); Hematocrit 44.4 % (33.0-51.0); Hemoglobin 14.5 g/dL (11.5-16.0); IMMATURE GRAN ABSOLUTE AUTO 0.02 K/mm3 (0.00-0.10); IMMATURE GRAN PERCENT AUTO 0 % (0-1); LYMPHOCYTES ABSOLUTE AUTO 1.51 K/mm3 (0.84-5.20); LYMPHOCYTES PERCENT AUTO 25 % (21-46); MONOCYTES ABSOLUTE AUTO 0.46 K/mm3 (0.16-1.47); MONOCYTES PERCENT AUTO 8 % (4-13); Mean Corpuscular HGB 29.4 pg (26.0-34.0); Mean Corpuscular HGB Conc 32.7 g/dL (31.5-36.5); Mean Corpuscular Volume 90 fL (80-100); NEUTROPHILS ABSOLUTE AUTO 3.89 K/mm3 (1.96-9.15); NEUTROPHILS PERCENT AUTO 65 % (41-73); Platelet Count 221 K/mm3 (150-400); RDW Coefficient Variation 13.5 % (11.7-14.2); RDW Standard Deviation 45.4 fL (35.1-46.3); Red Blood Cell Count 4.93 M/mm3 (3.80-5.20); White Blood Cell Count 6.03 K/mm3 (4.00-11.30)
[2024-06-04 09:05] LABS: Albumin, Blood 3.4 g/dL (3.4-5.0); Albumin/Globulin Ratio 0.8 (0.8-1.8); Bilirubin, Total 0.5 mg/dL (0.1-1.0); Bun/Creatinine Ratio 9.6 (12.0-20.0); Calcium, Blood 9.3 mg/dL (8.5-10.1); Creatinine, Blood 0.84 mg/dL (0.40-1.00); Potassium, Blood 4.2 mmol/L (3.5-5.5); Total Protein, Blood 7.4 g/dL (6.4-8.2)
[2024-06-04] MEDS ORDERED: OxyCODONE HCL 5 MG TAB PO ONE (11:45)
[2024-06-04] MEDS ORDERED: CeFAZolin Sodium 2,000 MG in NS 100 ML IV ONE (12:55)
[2024-06-04] MEDS ORDERED: CEPH500 PO (15:53)
[2024-06-04] MEDS ORDERED: OXAYDO5 M2 PO (15:53)
[2024-06-04 16:00] VITALS: BP 124/69
== END 2024-06-04 16:01 | disposition home or self-care (01) ==
LOC: ER 08:07
PROVIDERS: Emergency Medicine
DX: L03.311 Cellulitis of abdominal wall (principal); J44.9 Chronic obstructive pulmonary disease, unspecified; I10 Essential (primary) hypertension; K21.9 Gastro-esophageal reflux disease without esophagitis; E78.5 Hyperlipidemia, unspecified; Z88.0 Allergy status to penicillin; Z88.5 Allergy status to narcotic agent; Z79.899 Other long term (current) drug therapy; F17.210 Nicotine dependence, cigarettes, uncomplicated
CPT/HCPCS: 74177; 80053; 85025; 96365-59; 99284-25; A9270; J0690; Q9967

== ENCOUNTER 2024-09-28 16:51 | Inpatient (IN) | payer BC, OTHER ==
[~2024-09-28] VITALS: Ht 175.3 cm; Wt 85.1 kg
[~2024-09-28 16:51] MED LIST changes: +CEPH500 PO; +Lactated Ringer's 1,000 ML IV SCH; +OXAYDO5 M2 PO
[2024-09-28] MEDS ORDERED: Ondansetron HCl 2 MG / ML 2ML Vial IV PRN ×3 (17:10→23:55)
[2024-09-28 17:32] LABS: Hematocrit 41.9 % (33.0-51.0); Hemoglobin 14.2 g/dL (11.5-16.0); Mean Corpuscular HGB 28.9 pg (26.0-34.0); Mean Corpuscular HGB Conc 33.9 g/dL (31.5-36.5); Mean Corpuscular Volume 85 fL (80-100); Mean Platelet Volume 9.9 fL (9.1-12.4); Platelet Count 188 K/mm3 (150-400); RDW Coefficient Variation 13.6 % (11.7-14.2); RDW Standard Deviation 42.7 fL (35.1-46.3); Red Blood Cell Count 4.92 M/mm3 (3.80-5.20); White Blood Cell Count 16.68 K/mm3 (4.00-11.30)
[2024-09-28 17:51] LABS: BAND PERCENT MAN 12 % (0-8); BASOPHILS PERCENT MAN 0 % (0-2); EOSINOPHILS PERCENT MAN 0 % (0-6); LYMPHOCYTES PERCENT MAN 6 % (21-46); MONOCYTES PERCENT MAN 6 % (4-13); NEUTROPHILS ABSOLUTE MAN 14.67 K/mm3 (1.96-9.15); SEG NEUTROPHILS PERCENT MAN 76 % (41-73); TOTAL CELLS COUNTED 100
[2024-09-28 17:58] LABS: Albumin, Blood 2.6 g/dL (3.4-5.0); Albumin/Globulin Ratio 0.6 (0.8-1.8); Bilirubin, Total 1.4 mg/dL (0.1-1.0); Creatinine, Blood 0.85 mg/dL (0.40-1.00); Globulin, Blood 4.3 g/dL (2.2-4.0); Potassium, Blood 3.7 mmol/L (3.5-5.5); Total Protein, Blood 6.9 g/dL (6.4-8.2)
[2024-09-28] MEDS ORDERED: NS 1,000 ML IV SCH (19:30)
[2024-09-28] MEDS ORDERED: Clindamycin 600mg in D5W 50 ML IV ONE (19:40)
[2024-09-28] MEDS ORDERED: Vancomycin HCL 2,000 MG in NS 520 ML IV ONE (19:40)
[2024-09-28] MEDS ORDERED: Meropenem 1,000 MG in NS 100 ML IV ONE (19:40)
[2024-09-28] MEDS ORDERED: Morphine Sulfate 4 MG/1 ML Injection IV ONE (19:45)
[2024-09-28] MEDS ORDERED: Ondansetron HCl 2 MG / ML 2ML Vial IV ONE (19:45)
[2024-09-28] MEDS ORDERED: Ondansetron HCl 2 MG / ML 2ML Vial ONE (21:04)
[2024-09-28] MEDS ORDERED: Rocuronium Bromide 10 MG/ML 5ML Injection IV ONE (21:04)
[2024-09-28] MEDS ORDERED: Dexamethasone Sod Phos 10 MG/ML 1ML VIAL ONE (21:04)
[2024-09-28] MEDS ORDERED: propofoL 20 ML IV ONE (21:04)
[2024-09-28] MEDS ORDERED: Lidocaine HCl 2% 20 ML MDV ONE (21:05)
[2024-09-28] MEDS ORDERED: FentaNYL Citrate 50 MCG/ML 2 ML Injection ONE ×2 (21:05→23:13)
[2024-09-28] MEDS ORDERED: FentaNYL Citrate 50 MCG/ML 2 ML Injection IV PRN ×4 (21:15→23:45)
[2024-09-28 21:44] LABS: Source, Urine Clean Catch
[2024-09-28 21:48] LABS: Blood, Urine 2+ (Neg); Glucose Qualitative, Urine Neg (Neg); Ketones, Urine 1+ (Neg); Leukocyte Esterase, Urine 1+ (Neg); Nitrite, Urine Neg (Neg); Protein, Urine 3+ (Neg); Urobilinogen, Urine 1+ (Normal)
--- NOTE | 2024-09-28 22:25 | NUR ---
09/28/24 2225 Tiffany Houston PREOP ANTIBIOTICS ORDERED PER , PATIENT RECEIVED IV VANCO 2GM, MERREN 1GM, AND CLINDA 600MG PRIOR TO ARRIVING IN THE OR.
[2024-09-28] MEDS ORDERED: Tranexamic Acid 100 ML IV SCH (22:30)
[2024-09-28 22:32] LABS: Appearance, Urine Hazy (Clear); Bilirubin, Urine 1+ (Neg); Color, Urine Yellow (P-Yellow)
[2024-09-28 22:33] LABS: Bacteria Many /hpf; Red Blood Cells, Urine 0-2 /hpf (0-2); Squamous Epithelial Cells Mod /hpf (Few); White Blood Cells, Urine 0-2 /hpf (0-5)
[2024-09-28] MEDS ORDERED: Tranexamic Acid 1000 MG/10 ML 10ML Vial (SDV) XX ONE (22:35)
[2024-09-28] MEDS ORDERED: HUMAN PROTHROMBIN COMPLX IV ONE ×2 (22:35→22:40)
[2024-09-28] MEDS ORDERED: WATER FOR INJECTION STERILE IV ONE ×2 (22:35→22:40)
[2024-09-28] MEDS ORDERED: Phenylephrine HCl 100 MCG/ML-NS 10MLSYR (1MG/10ML) ONE (22:58)
[2024-09-28] MEDS ORDERED: Naloxone HCl 0.4MG / ML 1ML Vial IV PRN (23:45)
[2024-09-28] MEDS ORDERED: Acetaminophen 325 MG TABLET PO PRN (23:45)
[2024-09-28] MEDS ORDERED: FLU VACC TS2024-25(6MOS UP)/PF 45 MCG/0.5 ML SYRINGE IM ONE (23:55)
[2024-09-29] VITALS (29 sets, daily range): BP systolic 72–107; BP diastolic 45–73
[2024-09-29] MEDS ORDERED: Lactated Ringer's 1,000 ML IV SCH ×2 (00:40→11:10)
[2024-09-29] MEDS ORDERED: Lactated Ringer's 1,000 ML IV ONE ×2 (00:40→02:00)
[2024-09-29] MEDS ORDERED: Vancomycin HCL 2,000 MG in NS 500 ML IV ONE (01:10)
[2024-09-29] MEDS ORDERED: FentaNYL Citrate 50 MCG/ML 2 ML Injection IV PRN (02:00)
[2024-09-29] MEDS ORDERED: OxyCODONE HCL 5 MG TAB PO PRN (02:00)
[2024-09-29] MEDS ORDERED: Meropenem 1,000 MG in NS 100 ML IV SCH (02:00)
[2024-09-29] MEDS ORDERED: Clindamycin 600mg in D5W 50 ML IV SCH (02:00)
[2024-09-29 03:22] LABS: Hematocrit 31.5 % (33.0-51.0); Hemoglobin 10.4 g/dL (11.5-16.0); Mean Corpuscular HGB 29.1 pg (26.0-34.0); Mean Corpuscular Volume 88 fL (80-100); Platelet Count 151 K/mm3 (150-400); RDW Coefficient Variation 13.8 % (11.7-14.2); RDW Standard Deviation 44.9 fL (35.1-46.3); Red Blood Cell Count 3.57 M/mm3 (3.80-5.20); White Blood Cell Count 10.21 K/mm3 (4.00-11.30)
[2024-09-29 03:42] LABS: Magnesium, Blood 1.8 mg/dL (1.6-2.4)
--- NOTE | 2024-09-29 03:52 | NUR ---
NURSE NOTE: THIS PT ARRIVED INTO ICU AT AROUND 0030 FROM OR FROM IND. PT WAS ALERT AND ORIENTED X4 AND GCS OF 15 ON ARRIVAL. PT ON ROOM AIR WITH BP A LITTLE LOW. THIS RN SPOKE WITH SURGEON AT BEDSIDE REGARDING VITAL SIGNS AND FLUIDS ORDERED. DAUGHTER CAME TO BEDSIDE WELL. PT PLEASENT AND RESTING.
[2024-09-29 03:54] LABS: BAND PERCENT MAN 5 % (0-8); BASOPHILS PERCENT MAN 1 % (0-2); EOSINOPHILS PERCENT MAN 0 % (0-6); LYMPHOCYTES PERCENT MAN 4 % (21-46); MONOCYTES ABSOLUTE MAN 0.81 K/mm3 (0.16-1.47); MONOCYTES PERCENT MAN 8 % (4-13); NEUTROPHILS ABSOLUTE MAN 8.88 K/mm3 (1.96-9.15); SEG NEUTROPHILS PERCENT MAN 82 % (41-73); TOTAL CELLS COUNTED 100
[2024-09-29 03:56] LABS: Albumin, Blood 1.7 g/dL (3.4-5.0); Albumin/Globulin Ratio 0.5 (0.8-1.8); Bilirubin, Total 0.7 mg/dL (0.1-1.0); Bun/Creatinine Ratio 27.7 (12.0-20.0); Calcium, Blood 7.5 mg/dL (8.5-10.1); Creatinine, Blood 0.83 mg/dL (0.40-1.00); Globulin, Blood 3.1 g/dL (2.2-4.0); Potassium, Blood 3.8 mmol/L (3.5-5.5)
[2024-09-29 04:11] LABS: Total Protein, Blood 4.8 g/dL (6.4-8.2)
[2024-09-29] MEDS ORDERED: Pantoprazole Sodium 40 MG Injection IV SCH (06:00)
--- NOTE | 2024-09-29 06:47 | NUR ---
END OF SHIFT REPORT: SINCE ARRIVING ON THE UNIT, THIS PT HAS BEEN SLEEPING IN HER ROOM. HR HAS BEEN IN THE 90s - low 100s. BP SYSTOLIC HAVE BEEN 85-90, BUT MAP HAS BEEN GREATER THAN 65. O2 SAT HAS BEEN 95% AND ABOVE ON RA. PAIN IS BEING CONTROLLED BY FENT PUSHES. WILL GIVE REPORT TO AM KAYLYN.
[2024-09-29] MEDS ORDERED: Docusate Sodium 100 MG Cap PO SCH (09:00)
[2024-09-29] MEDS ORDERED: Lactobacil 2-S.Thermo-Bifido 1 1 Cap PO SCH (09:00)
[2024-09-29] MEDS ORDERED: NS 250 ML IV PRN (09:40)
[2024-09-29] MEDS ORDERED: CALCIUM GLUC IN NACL, ISO-OSM 100 ML IV ONE (10:40)
[2024-09-29] MEDS ORDERED: HYDPAM25 PO (13:23)
[2024-09-29] MEDS ORDERED: Bupivacaine 0.5% W/EPI 1:200000 SDV 30 ML Vial ONE (13:38)
[2024-09-29] MEDS ORDERED: Bupivacaine 0.5% HCl 5 MG/ML 30MLVIAL ONE (13:38)
[2024-09-29] MEDS ORDERED: HydrOXYzine Pamoate 25 MG Cap PO PRN (13:45)
[2024-09-29] MEDS ORDERED: Dexamethasone Sod Phos 10 MG/ML 1ML VIAL ONE (13:48)
[2024-09-29] MEDS ORDERED: FentaNYL Citrate 50 MCG/ML 2 ML Injection ONE (13:48)
[2024-09-29] MEDS ORDERED: Midazolam HCl 1MG / ML 2ML Vial ONE (13:48)
[2024-09-29] MEDS ORDERED: Phenylephrine HCl 100 MCG/ML-NS 10MLSYR (1MG/10ML) ONE (13:48)
[2024-09-29] MEDS ORDERED: Ondansetron HCl 2 MG / ML 2ML Vial ONE (13:48)
[2024-09-29] MEDS ORDERED: Rocuronium Bromide 10 MG/ML 5ML Injection IV ONE (13:48)
[2024-09-29] MEDS ORDERED: propofoL 20 ML IV ONE (13:50)
[2024-09-29] MEDS ORDERED: Albuterol HFA200 ACT/6.7 GM INH INH PRN (13:50)
--- NOTE | 2024-09-29 14:00 | NUR ---
INTO SDS VIA BED. PT NOW SURGICAL FLOOR STATUS. HISTORY AND ALLERGIES REVIEWED. LUNGS CLEAR-SATS>90% ON RA. NPO STATUS CONFIRMED. PT REPORTS FEELING ANXIOUS-ANESTHESIA PROVIDER MADE AWARE. NO NEW ORDERS.
[2024-09-29] MEDS ORDERED: Etomidate 2MG / ML 10ML Vial ONE (14:07)
[2024-09-29] MEDS ORDERED: Sugammadex Sodium 200 MG/2ML SDV (100 MG/ML) ONE (14:34)
--- NOTE | 2024-09-29 15:08 | NUR ---
09/29/24 1508 Evangelina Puckett NOTED PT HAS OPEN SURGUCAL INCISON FROM PREVIOUS SURGERY ON 09/28/24 OF THE LEFT BUTTOCK
--- NOTE | 2024-09-29 15:42 | NUR ---
Summary. Report given to surgical floor RN. All personal belongings taken to surgical room. Daughter updated with new room information.
[2024-09-29] MEDS ORDERED: Clindamycin 900mg in D5W 50ML 50 ML IV SCH (16:00)
--- NOTE | 2024-09-29 18:05 | NUR ---
SHIFT SUMMARY POD0 L BUTTOCK I&D, A/OX4, VITALS STABLE THOUGH HER BP HAS BEEN LOW EVEN WHILE SHE WAS IN PACU, SHE DENIES FEELING LIGHT HEADED OR DIZZY, TOLERATING PO, DRESSING IS DRY WITH SCANT AMOUNT OF DRAINAGE NOTABLE ON THE PACKING. PAIN WELL MANAGED. NOACUTE EVENTS. PT ARRIVED ON THE SURGICAL FLOOR AT AROUND 1630.
[2024-09-29 19:23] LABS: Creatinine, Blood 0.66 mg/dL (0.40-1.00); Vancomycin, Random 16.2 ug/mL
[2024-09-29] MEDS ORDERED: Vancomycin HCL 1,500 MG in NS 250 ML IV SCH (21:00)
[2024-09-29] MEDS ORDERED: TraZODone HCl 100 MG Tab PO SCH (21:00)
[2024-09-30 04:05] VITALS: BP 99/77
[2024-09-30 05:35] LABS: Hemoglobin 9.9 g/dL (11.5-16.0); Mean Corpuscular Volume 88 fL (80-100); Mean Platelet Volume 10.6 fL (9.1-12.4); Platelet Count 200 K/mm3 (150-400); RDW Coefficient Variation 14.4 % (11.7-14.2); RDW Standard Deviation 45.9 fL (35.1-46.3); Red Blood Cell Count 3.41 M/mm3 (3.80-5.20); White Blood Cell Count 15.89 K/mm3 (4.00-11.30)
[2024-09-30 06:17] LABS: Vancomycin, Trough 23.9 ug/mL (5.0-10.0)
--- NOTE | 2024-09-30 06:23 | NUR ---
NOC SUMMARY- PT PAIN MANAGED WELL. PT OUTER DRESSING CHANGED AND SECURED WITH TAPE. PT EATING AND DRINKING. RATLIFF IS DRAINING TO GRAVITY. SOME OUTPUT IN OSTOMY. PT ABLE TO TURN SELF IN BED. CALL LIGHT IN REACH.
[2024-09-30 07:23] VITALS: BP 103/66
[2024-09-30] MEDS ORDERED: Citalopram Hydrobromide 20 MG Tab PO SCH (09:00)
[2024-09-30] MEDS ORDERED: buPROPion HCL 150 MG TAB.SR.12H PO SCH (09:00)
[2024-09-30 09:31] LABS: Bun/Creatinine Ratio 33.3 (12.0-20.0); Calcium, Blood 7.8 mg/dL (8.5-10.1); Creatinine, Blood 0.72 mg/dL (0.40-1.00); Potassium, Blood 3.4 mmol/L (3.5-5.5)
[2024-09-30 15:51] VITALS: BP 107/86
[2024-09-30] MEDS ORDERED: Potassium Chloride 20 MEQ TabCR PO ONE (17:05)
[2024-09-30] MEDS ORDERED: CALCIUM GLUC IN NACL, ISO-OSM 100 ML IV ONE (17:10)
--- NOTE | 2024-09-30 17:49 | NUR ---
SHIFT SUMMARY POD1 L GLUTEAL ABSCESS I&D, A/OX4, VSS, TOLERATING PO, PAIN MANAGED PER EMAR, DRESSING CHANGED 1X BY THIS RN AND PACKING AND OUTTER DRESSING CHANGED BY SURGERY, PLAN TO REPEAT PACKING CHANGE TOMORROW 10/01 AND WILL NEED TO BE PRE MEDICATED FOR PAIN AT THAT TIME. ABLE TO STAND AT THE BEDSIDE WITH MINIMAL ASSISTANCE. NO ACUTE EVENTS THIS SHIFT, CALL LIGHT IN REACH.
[2024-09-30 19:40] VITALS: BP 111/77
[2024-09-30 21:34] LABS: Vancomycin, Trough 28.6 ug/mL (5.0-10.0)
[2024-10-01 05:14] VITALS: BP 99/69
[2024-10-01 06:36] LABS: Hematocrit 30.3 % (33.0-51.0); Hemoglobin 9.9 g/dL (11.5-16.0); Mean Corpuscular HGB 28.8 pg (26.0-34.0); Mean Corpuscular HGB Conc 32.7 g/dL (31.5-36.5); Mean Corpuscular Volume 88 fL (80-100); Mean Platelet Volume 10.1 fL (9.1-12.4); Platelet Count 246 K/mm3 (150-400); RDW Coefficient Variation 14.4 % (11.7-14.2); RDW Standard Deviation 46.3 fL (35.1-46.3); Red Blood Cell Count 3.44 M/mm3 (3.80-5.20); White Blood Cell Count 12.02 K/mm3 (4.00-11.30)
[2024-10-01 06:58] LABS: BAND PERCENT MAN 7 % (0-8); BASOPHILS PERCENT MAN 0 % (0-2); EOSINOPHILS PERCENT MAN 0 % (0-6); LYMPHOCYTES ABSOLUTE MAN 2.04 K/mm3 (0.84-5.20); LYMPHOCYTES PERCENT MAN 17 % (21-46); MONOCYTES ABSOLUTE MAN 0.36 K/mm3 (0.16-1.47); MONOCYTES PERCENT MAN 3 % (4-13); NEUTROPHILS ABSOLUTE MAN 9.61 K/mm3 (1.96-9.15); SEG NEUTROPHILS PERCENT MAN 73 % (41-73); TOTAL CELLS COUNTED 100
[2024-10-01 07:09] VITALS: BP 139/69
--- NOTE | 2024-10-01 08:23 | NUR ---
SHIFT SUMMARY NOC. PT POD 2 AND 3 FOR I&D ON LEFT GLUTE. PACKING IN PLACE AND EXUDRY PAD CHANGED X1. PT VERY PAINFUL THIS SHIFT AND MEDICATED FOR PAIN WITH OXY AND BREAKTHROUGH IV FENT. PT DID NOT SLEEP WELL THIS SHIFT AND REPORTED HX OF INSOMNIA. RATLIFF PATENT AND DRAINING CLEAR YELLOW URINE. PT MAKES NEEDS KNOWN, CALL LIGHT IN REACH.
[2024-10-01 11:36] LABS: Vancomycin, Random 14.7 ug/mL
[2024-10-01] MEDS ORDERED: Vancomycin HCL 1,000 MG in NS 250 ML IV SCH (12:00)
[2024-10-01] MEDS ORDERED: Calcium Chloride 10% 2,000 MG in NS 100 ML IV ONE (13:20)
[2024-10-01 15:17] VITALS: BP 113/79
--- NOTE | 2024-10-01 15:41 | NUR ---
DR. GRANADOS IN ROOM AT ABOUT 1420 FOR DRESSING CHANGE, CLINIC LICENSED PRACTICAL NURSE EFRAIN ASSISTED
--- NOTE | 2024-10-01 18:26 | NUR ---
SUMMARY: PT IS POD2 L GLUTEAL I&D. A/O, VSS. PT HAS RECEIVED ABX TODAY. PAIN APPEARS TO BE MANAGED WITH OXY AND FENTANYAL FOR BREAKTROUGH. PT ABLE TO STAND AND MOVE ABOUT THE ROOM TODAY. REPOSITIONS SELF IN BED. NO ACUTE CONCERNS, PLAN IS OR ON FRIDAY FOR WOUND VAC PLACEMENT
[2024-10-01] MEDS ORDERED: Enoxaparin 100 MG/ML 1ML SYR SC SCH (21:00)
[2024-10-02 04:16] VITALS: BP 117/72
--- NOTE | 2024-10-02 04:31 | NUR ---
SHIFT SUMMARY HUDSON WAS ALERT AND FULLY ORIENTED ON ASSESMENT. PT DRESSING CHANGED ON DAY SHIFT BY DR GRANADOS, C/D/I ON ASSESMENT. PT AMBULATING WITH 1 STAFF ASSIST. PAIN MEDS REQUESTED FREQUENTLY, POSITIVE THERAPEUTIC RESPONSE TO MEDS. NO ACUTE EVENTS TONIGHT, NO NOTED CHANGES TO PT CONDITION.
[2024-10-02 06:01] LABS: Hematocrit 26.6 % (33.0-51.0); Hemoglobin 8.8 g/dL (11.5-16.0); Mean Corpuscular HGB 29.2 pg (26.0-34.0); Mean Corpuscular HGB Conc 33.1 g/dL (31.5-36.5); Mean Corpuscular Volume 88 fL (80-100); Mean Platelet Volume 9.6 fL (9.1-12.4); Platelet Count 255 K/mm3 (150-400); RDW Coefficient Variation 14.5 % (11.7-14.2); RDW Standard Deviation 46.8 fL (35.1-46.3); Red Blood Cell Count 3.01 M/mm3 (3.80-5.20)
[2024-10-02 06:19] LABS: Bun/Creatinine Ratio 21.9 (12.0-20.0); Calcium, Blood 8.1 mg/dL (8.5-10.1); Creatinine, Blood 0.78 mg/dL (0.40-1.00); Potassium, Blood 3.7 mmol/L (3.5-5.5)
[2024-10-02 07:23] VITALS: BP 116/77
[2024-10-02 15:07] VITALS: BP 107/69
--- NOTE | 2024-10-02 16:55 | NUR ---
SHIFT SUMMARY PT IS POD3 L GLUTEAL I&D. PT IS ALERT AND FOLLOWS COMMANDS. DRESSING TO L BUTTOX CHANGED TODAY, WET TO DRY W/ KERLEX AND EXUDRY PER DR. GRANADOS. PT TOLERATED WELL. PAIN TOLERABLE W/ IV AND PO PAIN MEDS PER EMAR. TOLERATING REG DIET, RATLIFF IN PLACE, DRAINING YELLOW URINE, OSTOMY PUTTING OUT SOFT BROWN STOOL. STOMA PINK AND BEEFY. VSS. IV ABX AND FLUIDS GIVEN ORDERED. NPO AT MIDNIGHT FOR WOUND VAC PLACEMENT FOR TOMORROW. CALLING APPROPRIATELY.
[2024-10-02 19:24] VITALS: BP 103/69
[2024-10-03] VITALS (18 sets, daily range): BP systolic 94–134; BP diastolic 57–88
--- NOTE | 2024-10-03 06:10 | NUR ---
SHIFT SUMMARY PT POD 3 LEFT GLUTEAL I&D, DRESSING CHANGED YESTERDAY ON DAYSHIFT AND IS C/D/I. PT PAIN HAS BEEN MANANGED PER EMAR. IV ANTIBIOTICS INFUSED. PT TO HAVE WOUND VAC PLACED TODAY. VITALS STABLE. PLAN OF CARE UNCHANGED. BED IN LOWEST POSITION, CALL LIGHT WITHIN REACH.
[2024-10-03] MEDS ORDERED: FentaNYL Citrate 50 MCG/ML 2 ML Injection IV ONE (12:20)
--- NOTE | 2024-10-03 12:40 | NUR ---
PT TO PREOP FROM ROOM 210, EMPTIED OSTOMY AND RATLIFF. PT AMBULATED SBA TO [facility]. MEDICATED FOR PAIN BEFORE TRANSFER TO [facility].
[2024-10-03] MEDS ORDERED: FentaNYL Citrate 50 MCG/ML 2 ML Injection ONE ×2 (13:34→14:36)
[2024-10-03] MEDS ORDERED: propofoL 20 ML IV ONE (13:34)
[2024-10-03] MEDS ORDERED: Midazolam HCl 1MG / ML 2ML Vial ONE (13:34)
[2024-10-03] MEDS ORDERED: Dexamethasone Sod Phos 10 MG/ML 1ML VIAL ONE (13:40)
[2024-10-03] MEDS ORDERED: Ondansetron HCl 2 MG / ML 2ML Vial ONE (13:40)
[2024-10-03] MEDS ORDERED: HYDROmorphone HCl/Pf 1MG SYR ONE (13:55)
--- NOTE | 2024-10-03 14:10 | NUR ---
10/03/24 1410 Terar Dejesus PACKING PULLED OUT OF WOUND DURING PREPPING.
[2024-10-03] MEDS ORDERED: Ketorolac Tromethamine 30mg Vial ONE (14:22)
--- NOTE | 2024-10-03 15:40 | NUR ---
POST OP NOTE/SHIFT SUMMARY Pt back to room 210 from PACU. Pt is PODO for wound vac placement to L gluteal wound. Wound vac compressed, no drainage present at this time. Vss, pt is on 2L NC w/ o2 sats >92%. Transfered pt to bed from [facility] via slide sheet. Pt medicated for pain upon arrival. Pt refusing PAS at this time. Tolerating PO fluids. Pt is resting in bed w/ daughter at bedside, call light in reach.
[2024-10-03] MEDS ORDERED: OxyCODONE 5 mg/Acetamin 325 mg TABLET PO PRN (16:55)
[2024-10-04 01:19] VITALS: BP 104/63
[2024-10-04 03:46] VITALS: BP 123/67
[2024-10-04 06:18] LABS: Hematocrit 28.6 % (33.0-51.0); Hemoglobin 9.1 g/dL (11.5-16.0); Mean Corpuscular HGB 28.6 pg (26.0-34.0); Mean Corpuscular HGB Conc 31.8 g/dL (31.5-36.5); Mean Corpuscular Volume 90 fL (80-100); Mean Platelet Volume 9.4 fL (9.1-12.4); Platelet Count 333 K/mm3 (150-400); RDW Coefficient Variation 14.2 % (11.7-14.2); RDW Standard Deviation 46.5 fL (35.1-46.3); Red Blood Cell Count 3.18 M/mm3 (3.80-5.20); White Blood Cell Count 13.35 K/mm3 (4.00-11.30)
[2024-10-04 06:38] LABS: Bun/Creatinine Ratio 16.6 (12.0-20.0); Calcium, Blood 7.9 mg/dL (8.5-10.1); Creatinine, Blood 0.72 mg/dL (0.40-1.00); Potassium, Blood 3.6 mmol/L (3.5-5.5)
[2024-10-04 07:12] VITALS: BP 111/74
--- NOTE | 2024-10-04 07:50 | NUR ---
SUMMARY PT REPORTS PLEASED WITH PAIN CONTROL USING PERCOCET ALTERNATING WITH SUBLIMAZE. PT MOVES IN BED INDEPENDANTLY,VOIDING ONLY SMALL AMNTS, BUT BLADDER SCAN WITH 195 ML AND PT BEGINNING TO FEEL MORE URGE OF VOID. WOUND VAC TO SX WITH ONLY SCANT RED DRNG.
--- NOTE | 2024-10-04 12:08 | NUR ---
MORNING NOTE THIS RN ASSUMED CARE AT APPROX 0715. PATIENT ALERT AND ORIENTED X4. COMMUNICATING NEEDS EFFECTIVELY. POD 1 I&D WITH WOUND VAC PLACEMENT TO L GLUTEAL. WOUND VAC PATENT - DRAINING MINIMAL SEROSANGUINOUS DRAINAGE. MANAGING PAIN PER EMAR. AMBULATING WITH 1P ASSIST FOR DEVICE MANAGEMENT. VSS. CALL LIGHT IN REACH.
[2024-10-04 15:24] VITALS: BP 119/72
--- NOTE | 2024-10-04 16:55 | NUR ---
SHIFT SUMMARY NO ACUTE EVENTS SINCE MORNING NOTE. PATIENT REMAINS ALERT AND ORIENTED X4. VSS. SBP 110s. MAP >65. REMAINS ON ROOM AIR, SATs >90%. RR EVEN, UNLABORED. POD 1 GLUTEAL I&D WITH WOUND VAC PLACEMENT. WOUND VAC PATENT WITH MINIMAL SEROSANGUINOUS DRAINAGE. MANAGING PAIN PER EMAR. PATIENT UP IN ROOM AMBULATING WITH SBA CARLENE PATTERSON. WORKED WITH PHYSICAL THERAPY TODAY. VOIDING. CALL LIGHT IN REACH.
[2024-10-04 19:55] VITALS: BP 112/73
--- NOTE | 2024-10-04 21:35 | NUR ---
DISCUSSED PAIN PLAN FOR SHIFT. ENCOURAGED PT TO USE PO PAIN MEDICATION, PERCOCET, TYLENOL AND FENANYL IF PAIN NOT DECREASED. PT BECAME AGITTATED: "YOU GUYS JUST TELL ME WHAT MY PAIN IS, SINCE I DON'T KNOW, THAT'S HOW ITS BEEN ALL DAY." PT DOES NOT WANT TO TRY TYLENOL SINCE TYLENOL DID NOT WORK EARLIER IN DAY. REITERATED THAT WAS WHY THE DISCUSSION FOR PAIN PLAN THROUGHUT SHIFT. ENCOURAGED TO RING IF IN PAIN AND WILL MEDICATE PER PT'S WISHES.
[2024-10-05 04:09] VITALS: BP 124/75
--- NOTE | 2024-10-05 04:20 | NUR ---
AAOX4, MINIMAL ASSIST TO BSC WITH WALKER. RA. OSTOMY, PT HAS OWN SUPPLIES AND MANAGES INDEPENDENTLY. WOUND VAC TO L LOWER BUTTOCK IN PLACE WITH SCANT SEROSANGUINOUS DRAINAGE. PRN PERCOCET GIVEN X2 AND FENTANYL X1. PLAN: DC AFTER WOUND VAC CHANGED TO SNF, ANDRA 2.5..
[2024-10-05 07:16] VITALS: BP 121/72
[2024-10-05] MEDS ORDERED: Potassium Chloride 20 MEQ/15 ML UDC PO STA (12:22)
[2024-10-05] MEDS ORDERED: Furosemide 10 MG/ML 4ML Vial IV STA (12:23)
[2024-10-05] MEDS ORDERED: MetroNIDAZOLE 500 MG Tab PO SCH (13:00)
[2024-10-05] MEDS ORDERED: Ciprofloxacin 500 MG Tab PO SCH (13:00)
[2024-10-05] MEDS ORDERED: Furosemide 10 MG/ML 4ML Vial IV ONE (14:55)
[2024-10-05] MEDS ORDERED: Potassium Chloride 20 MEQ/15 ML UDC PO ONE (15:00)
[2024-10-05 15:48] VITALS: BP 126/78
--- NOTE | 2024-10-05 17:20 | NUR ---
SUMMARY PATIENT AOX4, S/P WOUND VAC PLACEMENT, DRAIN IS PATENT AND DRNG MODERATE S/S FLUID. VAC IS COMPRESSED AND INTACT. MEDICATED FOR PAIN T/O SHIFT. PATIENT TOLERATES PO AND VOIDS WELL. BILAT PEDAL EDEMA DECREASED WITH LASIX ON BOARD. UP IND IN ROOM. PATIENT HAS OSTOMY THAT IS ESTABLISHED AND SHE IS ABLE TO MAINTAIN HERSELF. VSS, CALLS APROPRIATELY AWAITING INS. AUTH FOR SNF.
[2024-10-05 20:03] VITALS: BP 131/88
[2024-10-06 04:42] VITALS: BP 125/94
[2024-10-06] MEDS ORDERED: Pantoprazole Sodium 40 MG Tab PO SCH (06:00)
--- NOTE | 2024-10-06 06:13 | NUR ---
SHIFT SUMMARY PT HAS RESTED IN BED MOST OF THE NIGHT, INDEPENDENT TO THE BSC. PAIN CONTROLLED WITH MEDS PER ORDERS. WOUND VAC IN PLACE. PT REPORTED SOME NAUSEA AFTER RECEIVING 2100 MEDS, BUT DID NOT NOTIFY THIS RN UNTIL AFTER THE NAUSEA HAD PASSED. PT WAS OFFERED CRACKERS WITH 2300 DOSE OF CIPRO AND EXPERINCED NO FURTHER ESISODES OF NAUSEA. PLAN IS FOR DISCHARGE TODAY. PLAN OF CARE UNCHANGED. BED IN LOWEST POSITION, CALL LIGHT WITHIN REACH.
[2024-10-06 06:54] LABS: BASOPHILS ABSOLUTE AUTO 0.01 K/mm3 (0.00-0.23); BASOPHILS PERCENT AUTO 0 % (0-2); EOSINOPHILS ABSOLUTE AUTO 0.16 K/mm3 (0.00-0.68); EOSINOPHILS PERCENT AUTO 2 % (0-6); Hematocrit 27.7 % (33.0-51.0); Hemoglobin 8.8 g/dL (11.5-16.0); IMMATURE GRAN ABSOLUTE AUTO 0.39 K/mm3 (0.00-0.10); IMMATURE GRAN PERCENT AUTO 5 % (0-1); LYMPHOCYTES ABSOLUTE AUTO 1.43 K/mm3 (0.84-5.20); LYMPHOCYTES PERCENT AUTO 18 % (21-46); MONOCYTES ABSOLUTE AUTO 0.49 K/mm3 (0.16-1.47); MONOCYTES PERCENT AUTO 6 % (4-13); Mean Corpuscular HGB 28.5 pg (26.0-34.0); Mean Corpuscular HGB Conc 31.8 g/dL (31.5-36.5); Mean Corpuscular Volume 90 fL (80-100); Mean Platelet Volume 9.1 fL (9.1-12.4); NEUTROPHILS ABSOLUTE AUTO 5.46 K/mm3 (1.96-9.15); NEUTROPHILS PERCENT AUTO 69 % (41-73); Platelet Count 364 K/mm3 (150-400); RDW Coefficient Variation 14.6 % (11.7-14.2); RDW Standard Deviation 46.7 fL (35.1-46.3); Red Blood Cell Count 3.09 M/mm3 (3.80-5.20); White Blood Cell Count 7.94 K/mm3 (4.00-11.30)
[2024-10-06 06:57] LABS: Anion Gap 8 mmol/L (3-11); Blood Urea Nitrogen 10 mg/dL (8-24); Bun/Creatinine Ratio 14.2 (12.0-20.0); CO2, Blood 31 mmol/L (21-32); Calcium, Blood 8.1 mg/dL (8.5-10.1); Chloride, Blood 108 mmol/L (98-108); Glomerular Filtration Rate 97 (60-); Glucose, Blood 96 mg/dL (70-99); Magnesium, Blood 2.2 mg/dL (1.6-2.4); Phosphorus, Blood 2.4 mg/dL (2.5-4.9); Potassium, Blood 3.7 mmol/L (3.5-5.5); Sodium, Blood 143 mmol/L (136-145)
[2024-10-06 07:26] VITALS: BP 120/81
[2024-10-06] MEDS ORDERED: Sodium Phosphate Mono/Dibasic 250 MG Tab PO SCH (09:00)
[2024-10-06] MEDS ORDERED: Furosemide 10 MG/ML 4ML Vial IV STA (13:46)
[2024-10-06] MEDS ORDERED: Diazepam 5 MG Tab PO PRN (13:55)
[2024-10-06] MEDS ORDERED: Diazepam 2 MG Tab PO ONE (14:45)
[2024-10-06 14:51] VITALS: BP 133/82
--- NOTE | 2024-10-06 18:38 | NUR ---
SUMMARY POWER GLIDE NOT WORKING DC'D, NEW IV PLACED BY BALANCE BRIDGE ASSEMBLER. SURGEON AT BEDSIDE TO CHANGE WOUND VAC. PATIENT TOLERATED WELL. PLAN FOR DC TO SNF TOMORROW. PATIENT MEDITCATED T/O DAY FOR PAIN. HAD SOME NAUSEA. ABX DC'D PER DR. GRANADOS. MANAGING OWN OSOMY APPLIANCE, WIH STEADY OUTPUT NOTED. VOIDING WELL. IND TO BSC. VSS, CALLS APROPRIATELY.
[2024-10-06 19:19] VITALS: BP 157/82
[2024-10-07 04:16] VITALS: BP 126/90
--- NOTE | 2024-10-07 04:20 | NUR ---
SHIFT SUMMARY HUDSON WAS ALERT AND FULLY ORIENTED ON ASSESMENT AND INDEPENDENT TO BSC. WOUND VAC CHANGED ON DAY SHIFT. PT HAS NOT REQUIRED PAIN MEDS SO FAR THIS SHIFT. DRESSING IS C/D/I AND SUCTIONING TO WOUND VAC. NO ACUTE EVENTS TONIGHT. NO NOTED CHANGES TO PT CONDITION.
[2024-10-07 07:09] VITALS: BP 150/87
[2024-10-07 07:10] LABS: Albumin, Blood 2.1 g/dL (3.4-5.0); Anion Gap 9 mmol/L (3-11); Blood Urea Nitrogen 8 mg/dL (8-24); Bun/Creatinine Ratio 11.4 (12.0-20.0); CO2, Blood 28 mmol/L (21-32); Calcium, Blood 8.1 mg/dL (8.5-10.1); Chloride, Blood 109 mmol/L (98-108); Glomerular Filtration Rate 97 (60-); Glucose, Blood 96 mg/dL (70-99); Potassium, Blood 3.6 mmol/L (3.5-5.5); Sodium, Blood 142 mmol/L (136-145)
[2024-10-07] MEDS ORDERED: Ondansetron 4 MG TAB PO PRN (08:30)
== END 2024-10-07 13:58 | DRG 871 ==
LOC: ER 16:51 → SURS 21:11 → ICUE 21:11 → ER 21:55 → ICUE 09-29 00:30 → SURS 09-29 16:12
PROVIDERS: Emergency Medicine; Internal Medicine; Surgery; ADMIT Student in an Organized Health Care Education/Training Program
PROC: 3E03329 Introduction of Other Anti-infective into Peripheral Vein, Percutaneous Approach (ICD-10-PCS; 2024-09-28)
PROC: 0HB8XZZ Excision of Buttock Skin, External Approach (ICD-10-PCS; principal; 2024-09-29 14:00)
DX: A41.9 Sepsis, unspecified organism (principal); M72.6 Necrotizing fasciitis; L02.31 Cutaneous abscess of buttock; R65.20 Severe sepsis without septic shock; I10 Essential (primary) hypertension; J44.9 Chronic obstructive pulmonary disease, unspecified; K61.39 Other ischiorectal abscess; K21.9 Gastro-esophageal reflux disease without esophagitis; F17.210 Nicotine dependence, cigarettes, uncomplicated; E83.51 Hypocalcemia; F32.A Depression, unspecified; G47.00 Insomnia, unspecified; Z66 Do not resuscitate; R91.8 Other nonspecific abnormal finding of lung field; E86.9 Volume depletion, unspecified; E78.5 Hyperlipidemia, unspecified; Z90.710 Acquired absence of both cervix and uterus; Z90.49 Acquired absence of other specified parts of digestive tract; Z85.42 Personal history of malignant neoplasm of other parts of uterus; Z87.19 Personal history of other diseases of the digestive system; Z98.890 Other specified postprocedural states; Z88.5 Allergy status to narcotic agent; Z88.0 Allergy status to penicillin; Z79.899 Other long term (current) drug therapy; Z79.51 Long term (current) use of inhaled steroids; Z28.21 Immunization not carried out because of patient refusal
CPT/HCPCS: 36415; 74177; 80048; 80053; 80069; 80202; 81001; 82330; 82565; 83605; 83690; 83735; 84145; 85025; 85027; 85651; 86141; 87040; 87070; 87075; 87076; 87086; 87185; 87205; 93005; 93010; 94760; 94762; 96361; 96365-59; 96375; 96376; 97110; 97161; 97530; 99285-25; A9270; C1751; G0378; J0612; J1100; J1171; J1650; J1885; J1940; J2185; J2250; J2270; J2371; J2405; J2470; J2704; J3010; J3370; J7030; J7040; J7050; J7120; J7168; Q9967

== ENCOUNTER 2024-11-16 03:55 | Day surgery (SDC) | payer BC, OTHER ==
[~2024-11-16 03:55] MED LIST changes: +HYDPAM25 PO; -Lactated Ringer's 1,000 ML IV SCH
== END 2024-11-16 23:11 | disposition home or self-care (01) ==
LOC: WOUND 03:55
DX: L02.31 Cutaneous abscess of buttock (principal); M72.6 Necrotizing fasciitis; I10 Essential (primary) hypertension; J44.9 Chronic obstructive pulmonary disease, unspecified; Z93.3 Colostomy status; Z87.891 Personal history of nicotine dependence; Z88.0 Allergy status to penicillin; Z88.5 Allergy status to narcotic agent
CPT/HCPCS: A6213; G0463

== ENCOUNTER 2024-11-26 04:11 | Day surgery (SDC) | payer BC, OTHER | END 2024-11-26 23:00 | disposition home or self-care (01) | LOC: WOUND 04:11 | DX: L02.31 Cutaneous abscess of buttock (principal); M72.6 Necrotizing fasciitis; I10 Essential (primary) hypertension; J44.9 Chronic obstructive pulmonary disease, unspecified; Z93.3 Colostomy status | CPT/HCPCS: A6213; G0463 ==

== ENCOUNTER 2024-12-03 00:34 | Day surgery (SDC) | payer BC, OTHER | END 2024-12-03 23:00 | disposition home or self-care (01) | LOC: WOUND 00:34 | DX: L02.31 Cutaneous abscess of buttock (principal); M72.6 Necrotizing fasciitis; J44.9 Chronic obstructive pulmonary disease, unspecified; I10 Essential (primary) hypertension; Z93.3 Colostomy status | CPT/HCPCS: G0463 ==

== ENCOUNTER 2024-12-10 03:43 | Day surgery (SDC) | payer MEDICARE, BC, OTHER | END 2024-12-10 23:00 | disposition home or self-care (01) | LOC: WOUND 03:43 | DX: L02.31 Cutaneous abscess of buttock (principal); M72.6 Necrotizing fasciitis; J44.9 Chronic obstructive pulmonary disease, unspecified; I10 Essential (primary) hypertension; Z93.3 Colostomy status ==

== ENCOUNTER 2024-12-17 02:43 | Day surgery (SDC) | payer MEDICARE, BC, OTHER | END 2024-12-17 23:00 | disposition home or self-care (01) | LOC: WOUND 02:43 | DX: S31.829A Unspecified open wound of left buttock, initial encounter (principal); I10 Essential (primary) hypertension; J44.9 Chronic obstructive pulmonary disease, unspecified; Z93.3 Colostomy status; X58.XXXA Exposure to other specified factors, initial encounter | CPT/HCPCS: G0463 ==